=== PATIENT | male | born 1955 | race African-American/Black ===

== ENCOUNTER 2019-03-03 13:46 | Inpatient (IN) | payer BC ==
[2019-03-03 18:19] VITALS: BMI 15.7
--- NOTE | 2019-03-03 21:17 | HP ---
"COWS - Scale Resting Pulse: 1= [place] 81-100 Sweatin= Chills/Flushing Restless Observation: 3= Extraneous Movement Pupil Size: 1= Pupils >than Normal (Pupils = 3 mm) Bone or Joint Aches: 0= None Runny Nose/ Eye Tearin= Nasal Congestion GI Upset > 30mins: 2= Nausea/Diarrhea (No diarhea) Tremor Observation: 2= Slight Tremor Visible Yawning Observation: 0= None Anxiety or Irritability: 1=Feels Anxious/Irritable Goose Flesh Skin: 0=Smooth Skin COWS Score: 12 CIWA Score Nausea/Vomitin Muscle Tremors: 3 Anxiety: 1-Mildly Anxious Agitation: 4-Moderately Restless Paroxysmal Sweats: 3 (Increased facial moisture) Orientation: 0-Oriented Tacttile Disturbances: 0-None Auditory Disturbances: 0-None Visual Disturbances: 0-None Headache: 0-None Present CIWA-Ar Total Score: 14 - Admission Criteria OASAS Guidelines: Admission for Medically Managed Detox: Requires at least one of the followin. CIWA greater than 12 2. Seizures within the past 24 hours 3. Delirium tremens within the past 24 hours 4. Hallucinations within the past 24 hours 5. Acute intervention needed for co occurring medical disorder 6. Acute intervention needed for co occurring psychiatric disorder 7. Severe withdrawal that cannot be handled at a lower level of care (continued vomiting, continued diarrhea, abnormal vital signs) requiring intravenous medication and/or fluids 8. Patient presents the following: CIWA greater than 12 Admission Criteria Met: Admission criteria met Admission ROS [facility] Chief Complaint: I drink alcohol and use opiates. But alcohol is my problem/ Allergies/Adverse Reactions: Allergies Allergy/AdvReac Type Severity Reaction Status Date / Time No Known Allergies Allergy Verified 03/03/19 18:18 History of Present Illness: First admission for this 63 yo who presents seeking detox from alcohol and opiates. UTox: + THC/FEN/MOP/OXY/BUP MARK: 0.0 Alcohol use began at age 16. Currently drinks 1 pint daily x 1 year. Opiate use began at age 57. On Suboxone, but has been only taking pieces of prescribed dose. (Approx 1/4 or less of strip). Self tapering off Suboxone. Relapsed w/heroin,([place]) about 2-3 days ago. Discussed Suboxone dosing and patient wants minimal tx. Will give 2 mg and increase number of hours between doses. Marijuana use began at age 17. Once or twice/month. Nicotine use began at age [age]. Currently smoking 1/2 PPD. Black outs - last 4 days ago. Denies seizures. Overdoses. 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 Denies thoughts of harming self or others. SHx: Owns own place. Retired (On SSD). Denies legal issues Longest length sobriety x 3 years in Patient Name: Manuel Awna Date: 1955 Address: [address] [place] [address] Sex: Male Rx Written Rx Dispensed Drug Quantity Days Supply Prescriber Name 08/28/2018 08/31/2018 suboxone 8 mg-2 mg sl film 30 30 Dorcena-Ayo, Karla 08/06/2018 08/12/2018 suboxone 8 mg-2 mg sl film 30 30 Dorcena-Ayo, Karla 07/09/2018 07/10/2018 suboxone 8 mg-2 mg sl film 30 30 Dorcena-Ayo, Karla 05/07/2018 05/08/2018 suboxone 8 mg-2 mg sl film 30 30 Dorcena-Ayo, Karla 04/10/2018 04/11/2018 suboxone 8 mg-2 mg sl film 30 30 Dorcena-Ayo, Karla 03/11/2018 03/13/2018 suboxone 8 mg-2 mg sl film 30 30 Dorcena-Ayo, Karla Search Terms: Manuel Awan, 1955 Search Date: 03/03/2019 09:12:28 PM States Searched: [place], [place], [place], [place], [place], [place], [place] The Drug Utilization Report below displays the controlled substance prescriptions, if any, that were dispensed in the indicated state(s). The information displayed on this report is compiled from requests submitted to other states' PMPs, and accurately reflects the information as returned by them. Blank chaney indicate data not provided by other state. This report was requested by: Kristina Mauro | Reference #: [id number] Exam Limitations: No Limitations - Ebola screening Have you traveled outside of the country in the last 21 days: No (N) Have you had contact with anyone from an Ebola affected area: No Have you been sick,other than usual withdrawal symptoms: No Do you have a fever: No - Review of Systems Constitutional: Loss of Appetite, Changes in sleep (Difficulty falling and staying.), Unintentional Wgt. Loss (r/t drinking) EENT: reports: Blurred Vision, Nose Congestion, Dental Problems (Missing and chipped teeth. Chews and swallows ok.) Respiratory: reports: No Symptoms reported Cardiac: reports: No Symptoms Reported, See HPI GI: reports: Nausea, Vomiting (Vomited up fluids, this a.m.) : reports: No Symptoms Reported Musculoskeletal: reports: No Symptoms Reported Integumentary: reports: No Symptoms Reported Neuro: reports: Tremors Endocrine: reports: No Symptoms Reported Hematology: reports: No Symptoms Reported Psychiatric: reports: Orientated x3, Anxious Patient History - PPD History Previous Implant?: Yes (Will order CXRay) Documented Results: Positive w/o proof (States hx: PPD + and took medications for 1 year in ) Implanted On Prior [facility] Admission?: No PPD to be Administered?: No - Smoking Cessation Smoking history: Current every day smoker Aproximately how many cigarettes per day: 10 Hx Chewing Tobacco Use: No Initiated information on smoking cessation: Yes 'Breaking Loose' booklet given: 03/03/19 - Substance & Tx. History Hx Alcohol Use: Yes Hx Substance Use: Yes Substance Use Type: Alcohol, Heroin (States takes suboxone and has been weaning self off. ), Marijuana Hx Substance Use Treatment: Yes (detox, rehab, on Suboxone) - Substances abused Alcohol Substance route: Oral Frequency: Daily Amount used: 1 pint of Vodka Age of first use: 16 Date of last use: 03/03/19 Heroin Other (specify): sniff Frequency: Daily Amount used: 2 -3 bags Age of first use: 57 Date of last use: 03/03/19 Admission Physical Exam BHS - Vital Signs Vital Signs: Vital Signs - 24 hr 03/03/19 03/03/19 18:07 18:28 Temperature 97.7 F 97.7 F Pulse Rate 92 H 92 H Respiratory 20 20 Rate Blood Pressure 183/95 H 183/95 H - Physical General Appearance: Yes: Mild Distress, Thin, Tremorous (Mild tremors of hands) , Sweating (Increased facial moisture), Anxious HEENTM: Yes: EOMI (Jerking movement of eyes upon lateral gaze), Hearing grossly Normal, Normocephalic, SARA (Pupils = 3 mm), Pharynx Normal Respiratory: Yes: Lungs Clear (Pulse ox = 94 %), Normal Breath Sounds, No Respiratory Distress Neck: Yes: No masses,lesions,Nodules, Supple Breast: Yes: Breast Exam Deferred Cardiology: Yes: Regular Rhythm, Regular Rate, S1, S2, Murmur (Murmur heard) Abdominal: Yes: Non Tender, Flat, Soft, Increased Bowel Sounds Genitourinary: Yes: Within Normal Limits Back: Yes: Normal Inspection Musculoskeletal: Yes: full range of Motion, Gait Steady Extremities: Yes: Normal Capillary Refill, Normal Range of Motion, Tremors Neurological: Yes: chro II-XII NML intact (Jerking movement of eyes upon lateral gaze), Fully Oriented, Alert, Motor Strength 5/5 Integumentary: Yes: Normal Color, Warm, Diaphoresis (Increased facial moisture) Lymphatic: Yes: Within Normal Limits - Diagnostic (1) Alcohol dependence with uncomplicated withdrawal Current Visit: Yes Status: Acute (2) Opioid dependence with withdrawal Current Visit: Yes Status: Chronic Comment: Has been weaning self off of suboxone and relapsed (3) Nicotine dependence, uncomplicated Current Visit: Yes Status: Chronic Qualifiers: Nicotine product type: cigarettes Qualified Code(s): F17.210 - Nicotine dependence, cigarettes, uncomplicated (4) Nystagmus Current Visit: Yes Status: Acute Comment: Unsure of chronicity (5) History of positive PPD Current Visit: Yes Status: Chronic (6) Underweight Current Visit: Yes Status: Chronic (7) COPD (chronic obstructive pulmonary disease) Current Visit: Yes Status: Chronic Qualifiers: COPD type: unspecified COPD Qualified Code(s): J44.9 - Chronic obstructive pulmonary disease, unspecified (8) History of lung disease Current Visit: Yes Status: Suspected (9) Elevated blood pressure reading in office without diagnosis of hypertension Current Visit: Yes Status: Acute Cleared for Admission S - Detox or Rehab [facility] Level of Care: Medically Managed Detox Regimen/Protocol: Librium Claeared for Rehab Admission: No Breathalyzer - Breathalyzer Breathalyzer: 0 Urine Drug Screen - Test Device Lot number: [id number] Expiration date: 11/22/20 - Control Is test valid?: Yes - Results Drug screen NEGATIVE: No Urine drug screen results: THC-Marijuana, FEN-Fentanyl, MOP-Opiates, OXY- Oxycodone, BUP-Suboxone Inpatient Rehab Admission - Rehab Decision to Admit Inpatient rehab admission?: No"
[2019-03-03] MEDS ORDERED: BISMUTH SUBSALICYLATE 524 MG/30 ML UD PO PRN (22:02)
[2019-03-03] MEDS ORDERED: NICOTINE POLACRILEX 2 MG GUM BUC PRN (22:02)
[2019-03-03] MEDS ORDERED: chlordiazePOXIDE HCL 10 MG CAPSULE PO PRN (22:02)
[2019-03-03] MEDS ORDERED: METHOCARBAMOL 500 MG TABLET PO PRN (22:02)
[2019-03-03] MEDS ORDERED: ACETAMINOPHEN 325 MG TABLET (FP) PO PRN ×2 (22:02)
[2019-03-03] MEDS ORDERED: MAGNESIUM HYDROX 2400MG/30ML ORAL SUSPENSION 30 ML CUP PO PRN (22:02)
[2019-03-03] MEDS ORDERED: MELATONIN 5 MG TABLETS PO PRN (22:02)
[2019-03-03] MEDS ORDERED: MAG HYDROX/AL HYDROX/SIMETH 30 ML UNIT-DOSE CUP PO PRN (22:02)
[2019-03-03] MEDS ORDERED: IBUPROFEN 400 MG TABLET (FP) PO PRN (22:02)
[2019-03-03] MEDS ORDERED: MENTHOL/PHENOL 1 EACH UD MM PRN (22:02)
[2019-03-03] MEDS ORDERED: MAGNESIUM CITRATE 300 ML BOTTLE PO PRN (22:02)
[2019-03-03] MEDS ORDERED: cloNIDine HCL 0.1 MG TABLET PO ONE (22:07)
[2019-03-04] MEDS: chlordiazePOXIDE HCL 25 MG CAPSULE PO SCH ×3 (04:07→22:14)
[2019-03-04] MEDS ORDERED: BUPRENORPHINE/NALOXONE 2 MG/0.5 MG FILM PACKET SL ONE (10:00)
[2019-03-04 10:08] LABS: HEMATOCRIT 39.6 % (35.4-49); HEMOGLOBIN 13.5 GM/dL (11.7-16.9); MCH 34.9 pg (25.7-33.7); MEAN CELL VOLUME 102.5 fl (80-96); MEAN PLT VOLUME 8.9 fl (7.5-11.1); PLATELET COUNT 240 K/MM3 (134-434); RBC 3.87 M/mm3 (4.00-5.60); WHITE BLOOD COUNT 4.5 K/mm3 (4.0-10.0)
[2019-03-04 10:15] LABS: ALBUMIN 3.3 g/dl (3.4-5.0); BILIRUBIN,TOTAL 0.9 mg/dL (0.2-1); BLOOD UREA NITROGEN 11.2 mg/dL (7-18); CALCIUM 9.7 mg/dL (8.5-10.1); CREATININE 0.9 mg/dL (0.55-1.3); TOT PROT 8.4 g/dl (6.4-8.2)
[2019-03-04] MEDS: PRENATAL VITAMINS W/ FOLIC ACID TABLET (FP) PO SCH (10:33)
[2019-03-04] MEDS: NICOTINE 14 MG/24 HOURS TOPICAL PATCH TD SCH (10:34)
--- NOTE | 2019-03-04 11:23 | EKG ---
Test Reason : Blood Pressure : / mmHG Vent. Rate : 065 BPM Atrial Rate : 065 BPM P-R Int : 102 ms QRS Dur : 094 ms QT Int : 402 ms P-R-T Axes : 082 076 067 degrees QTc Int : 418 ms POOR DATA QUALITY, INTERPRETATION MAY BE ADVERSELY AFFECTED SINUS RHYTHM WITH SHORT ME NONSPECIFIC ST ABNORMALITY ABNORMAL ECG NO PREVIOUS ECGS AVAILABLE Confirmed by Marco Antonio Bradford MD ([id number]) on 03/04/2019 11:23:15 AM Referred By: Confirmed By:Marco Antonio Bradford MD
--- NOTE | 2019-03-04 12:41 | PN ---
[facility] CIWA - CIWA Score Nausea/Vomitin-Mild Nausea/No Vomiting Muscle Tremors: 2 Anxiety: 3 Agitation: 2 Paroxysmal Sweats: 1-Minimal Palms Moist Orientation: 0-Oriented Tacttile Disturbances: 1-Very Mild Itch/Numbness Auditory Disturbances: 0-None Visual Disturbances: 0-None Headache: 1-Very Mild CIWA-Ar Total Score: 11 S COWS - Scale Resting Pulse: 1= [place] 81-100 Sweatin= Chills/Flushing Restless Observation: 0= Sits Still Pupil Size: 0= Normal to Room Light Bone or Joint Aches: 1= Mild Discomfort Runny Nose/ Eye Tearin= Nasal Congestion GI Upset > 30mins: 2= Nausea/Diarrhea (no diarrhea) Tremor Observation of Outstretched Hands: 2= Slight Tremor Visible Yawning Observation: 1= 1-2x During Session Anxiety or Irritability: 2=Irritable/Anxious Goose Flesh Skin: 0=Smooth Skin COWS Score: 11 [facility] Progress Note (SOAP) Subjective: 63 years old male 1st patient [facility] admission was admitted on 03/03/19 for alcohol and opiate withdrawal sx management doing well with librium and suboxone detox regimen sitting on the edge of the bed eating breakfast alert speech clearly steady gait from bed to bathroom denies dizziness Objective: 03/04/19 12:43 Vital Signs Temperature 97.6 F 03/04/19 09:11 Pulse Rate 81 03/04/19 09:11 Respiratory Rate 18 03/04/19 09:11 Blood Pressure 117/64 03/04/19 09:11 O2 Sat by Pulse Oximetry (%) Laboratory Last Values WBC 4.5 K/mm3 (4.0-10.0) 03/04/19 08:00 RBC 3.87 M/mm3 (4.00-5.60) L 03/04/19 08:00 Hgb 13.5 GM/dL (11.7-16.9) 03/04/19 08:00 Hct 39.6 % (35.4-49) 03/04/19 08:00 MCV 102.5 fl (80-96) H 03/04/19 08:00 MCH 34.9 pg (25.7-33.7) H 03/04/19 08:00 MCHC 34.0 g/dl (32.0-35.9) 03/04/19 08:00 RDW 16.0 % (11.9-15.9) H 03/04/19 08:00 Plt Count 240 K/MM3 (134-434) 03/04/19 08:00 MPV 8.9 fl (7.5-11.1) 03/04/19 08:00 Sodium 138 mmol/L (136-145) 03/04/19 08:00 Potassium 4.0 mmol/L (3.5-5.1) 03/04/19 08:00 Chloride 98 mmol/L (98-107) 03/04/19 08:00 Carbon Dioxide 35 mmol/L (21-32) H 03/04/19 08:00 Anion Gap 5 MMOL/L (8-16) L 03/04/19 08:00 BUN 11.2 mg/dL (7-18) 03/04/19 08:00 Creatinine 0.9 mg/dL (0.55-1.3) 03/04/19 08:00 Est GFR (CKD-EPI)AfAm 104.24 03/04/19 08:00 Est GFR (CKD-EPI)NonAf 89.94 03/04/19 08:00 Random Glucose 87 mg/dL (74-106) 03/04/19 08:00 Calcium 9.7 mg/dL (8.5-10.1) 03/04/19 08:00 Total Bilirubin 0.9 mg/dL (0.2-1) 03/04/19 08:00 AST 55 U/L (15-37) H 03/04/19 08:00 ALT 49 U/L (13-61) 03/04/19 08:00 Alkaline Phosphatase 134 U/L (45-117) H 03/04/19 08:00 Total Protein 8.4 g/dl (6.4-8.2) H 03/04/19 08:00 Albumin 3.3 g/dl (3.4-5.0) L 03/04/19 08:00 RPR Titer Nonreactive (NONREACTIVE) 03/04/19 08:00 lab noted Assessment: 03/04/19 12:44 alcohol and opiate withdrawal sx Plan: continue librium and suboxone detox regimen
[2019-03-04] MEDS: THIAMINE HCL 100 MG TABLET (FP) PO SCH (22:14)
[2019-03-05] MEDS ORDERED: chlordiazePOXIDE HCL 10 MG CAPSULE PO PRN
[2019-03-05] MEDS: chlordiazePOXIDE 5 MG CAPSULE PO SCH ×3 (05:19→22:06)
[2019-03-05] MEDS: PRENATAL VITAMINS W/ FOLIC ACID TABLET (FP) PO SCH (10:09)
[2019-03-05] MEDS: NICOTINE 14 MG/24 HOURS TOPICAL PATCH TD SCH (10:10)
--- NOTE | 2019-03-05 14:37 | PN ---
[facility] CIWA - CIWA Score Nausea/Vomitin-No Nausea/No Vomiting Muscle Tremors: 2 Anxiety: 2 Agitation: 2 Paroxysmal Sweats: No Perspiration Orientation: 0-Oriented Tacttile Disturbances: 1-Very Mild Itch/Numbness Auditory Disturbances: 0-None Visual Disturbances: 0-None Headache: 0-None Present CIWA-Ar Total Score: 7 S COWS - Scale Resting Pulse: 1= [place] 81-100 Sweatin= Chills/Flushing Restless Observation: 0= Sits Still Pupil Size: 0= Normal to Room Light Bone or Joint Aches: 1= Mild Discomfort Runny Nose/ Eye Tearin= None GI Upset > 30mins: 1= Stomach Cramp Tremor Observation of Outstretched Hands: 1= Tremor [place], Not Seen Yawning Observation: 1= 1-2x During Session Anxiety or Irritability: 1=Feels Anxious/Irritable Goose Flesh Skin: 0=Smooth Skin COWS Score: 7 [facility] Progress Note (SOAP) Subjective: doing well with libirum and suboxone detox regimen less tremor tolerate food and fluid well feeling sad multiple relapse denies suicidal ideation denies history of suicidal attempt Objective: 03/05/19 14:51 Vital Signs Temperature 97.8 F 03/05/19 13:41 Pulse Rate 82 03/05/19 13:41 Respiratory Rate 18 03/05/19 13:41 Blood Pressure 146/89 03/05/19 13:41 O2 Sat by Pulse Oximetry (%) Laboratory Last Values WBC 4.5 K/mm3 (4.0-10.0) 03/04/19 08:00 RBC 3.87 M/mm3 (4.00-5.60) L 03/04/19 08:00 Hgb 13.5 GM/dL (11.7-16.9) 03/04/19 08:00 Hct 39.6 % (35.4-49) 03/04/19 08:00 MCV 102.5 fl (80-96) H 03/04/19 08:00 MCH 34.9 pg (25.7-33.7) H 03/04/19 08:00 MCHC 34.0 g/dl (32.0-35.9) 03/04/19 08:00 RDW 16.0 % (11.9-15.9) H 03/04/19 08:00 Plt Count 240 K/MM3 (134-434) 03/04/19 08:00 MPV 8.9 fl (7.5-11.1) 03/04/19 08:00 Sodium 138 mmol/L (136-145) 03/04/19 08:00 Potassium 4.0 mmol/L (3.5-5.1) 03/04/19 08:00 Chloride 98 mmol/L (98-107) 03/04/19 08:00 Carbon Dioxide 35 mmol/L (21-32) H 03/04/19 08:00 Anion Gap 5 MMOL/L (8-16) L 03/04/19 08:00 BUN 11.2 mg/dL (7-18) 03/04/19 08:00 Creatinine 0.9 mg/dL (0.55-1.3) 03/04/19 08:00 Est GFR (CKD-EPI)AfAm 104.24 03/04/19 08:00 Est GFR (CKD-EPI)NonAf 89.94 03/04/19 08:00 Random Glucose 87 mg/dL (74-106) 03/04/19 08:00 Calcium 9.7 mg/dL (8.5-10.1) 03/04/19 08:00 Total Bilirubin 0.9 mg/dL (0.2-1) 03/04/19 08:00 AST 55 U/L (15-37) H 03/04/19 08:00 ALT 49 U/L (13-61) 03/04/19 08:00 Alkaline Phosphatase 134 U/L (45-117) H 03/04/19 08:00 Total Protein 8.4 g/dl (6.4-8.2) H 03/04/19 08:00 Albumin 3.3 g/dl (3.4-5.0) L 03/04/19 08:00 RPR Titer Nonreactive (NONREACTIVE) 03/04/19 08:00 lab noted Assessment: 03/05/19 14:52 alcohol and opiate withdrawal sx Plan: continue libirum and suboxone detox regimen
[2019-03-05] MEDS ORDERED: BUPRENORPHINE/NALOXONE 2 MG/0.5 MG FILM PACKET SL ONE (22:00)
[2019-03-05] MEDS: THIAMINE HCL 100 MG TABLET (FP) PO SCH (22:06)
[2019-03-06] MEDS: chlordiazePOXIDE HCL 10 MG CAPSULE PO SCH ×3 (05:41→22:18)
[2019-03-06] MEDS: PRENATAL VITAMINS W/ FOLIC ACID TABLET (FP) PO SCH (09:59)
[2019-03-06] MEDS: NICOTINE 14 MG/24 HOURS TOPICAL PATCH TD SCH (09:59)
[2019-03-06 12:19] LABS: URINE APPEARANCE CLEAR; URINE BILIRUBIN NEGATIVE (NEGATIVE); URINE COLOR YELLOW; URINE GLUCOSE (UA) NEGATIVE (NEGATIVE); URINE KETONE NEGATIVE (NEGATIVE); URINE LEUK ESTERASE NEGATIVE (NEGATIVE); URINE NITRITE NEGATIVE (NEGATIVE); URINE PROTEIN NEGATIVE (NEGATIVE)
--- NOTE | 2019-03-06 14:17 | PN ---
S CIWA - CIWA Score Nausea/Vomitin-No Nausea/No Vomiting Muscle Tremors: 2 Anxiety: 2 Agitation: 1-Slight > Activity Paroxysmal Sweats: No Perspiration Orientation: 0-Oriented Tacttile Disturbances: 0-None Auditory Disturbances: 0-None Visual Disturbances: 0-None Headache: 0-None Present CIWA-Ar Total Score: 5 [facility] COWS - Scale Resting Pulse: 0= [place] 80 or Below Sweatin= Chills/Flushing Restless Observation: 0= Sits Still Pupil Size: 0= Normal to Room Light Bone or Joint Aches: 1= Mild Discomfort Runny Nose/ Eye Tearin= None GI Upset > 30mins: 1= Stomach Cramp Tremor Observation of Outstretched Hands: 1= Tremor [place], Not Seen Yawning Observation: 0= None Anxiety or Irritability: 1=Feels Anxious/Irritable Goose Flesh Skin: 0=Smooth Skin COWS Score: 5 [facility] Progress Note (SOAP) Subjective: doing well with librium and suboxone detox regimen sleep better at night tolerate food and fluid well social with peer in day room discuss aftercare with staff prefers [facility] Objective: 03/06/19 14:19 Vital Signs Temperature 98.8 F 03/06/19 13:13 Pulse Rate 75 03/06/19 13:13 Respiratory Rate 18 03/06/19 13:13 Blood Pressure 112/75 03/06/19 13:13 O2 Sat by Pulse Oximetry (%) Laboratory Last Values WBC 4.5 K/mm3 (4.0-10.0) 03/04/19 08:00 RBC 3.87 M/mm3 (4.00-5.60) L 03/04/19 08:00 Hgb 13.5 GM/dL (11.7-16.9) 03/04/19 08:00 Hct 39.6 % (35.4-49) 03/04/19 08:00 MCV 102.5 fl (80-96) H 03/04/19 08:00 MCH 34.9 pg (25.7-33.7) H 03/04/19 08:00 MCHC 34.0 g/dl (32.0-35.9) 03/04/19 08:00 RDW 16.0 % (11.9-15.9) H 03/04/19 08:00 Plt Count 240 K/MM3 (134-434) 03/04/19 08:00 MPV 8.9 fl (7.5-11.1) 03/04/19 08:00 Sodium 138 mmol/L (136-145) 03/04/19 08:00 Potassium 4.0 mmol/L (3.5-5.1) 03/04/19 08:00 Chloride 98 mmol/L (98-107) 03/04/19 08:00 Carbon Dioxide 35 mmol/L (21-32) H 03/04/19 08:00 Anion Gap 5 MMOL/L (8-16) L 03/04/19 08:00 BUN 11.2 mg/dL (7-18) 03/04/19 08:00 Creatinine 0.9 mg/dL (0.55-1.3) 03/04/19 08:00 Est GFR (CKD-EPI)AfAm 104.24 03/04/19 08:00 Est GFR (CKD-EPI)NonAf 89.94 03/04/19 08:00 Random Glucose 87 mg/dL (74-106) 03/04/19 08:00 Calcium 9.7 mg/dL (8.5-10.1) 03/04/19 08:00 Total Bilirubin 0.9 mg/dL (0.2-1) 03/04/19 08:00 AST 55 U/L (15-37) H 03/04/19 08:00 ALT 49 U/L (13-61) 03/04/19 08:00 Alkaline Phosphatase 134 U/L (45-117) H 03/04/19 08:00 Total Protein 8.4 g/dl (6.4-8.2) H 03/04/19 08:00 Albumin 3.3 g/dl (3.4-5.0) L 03/04/19 08:00 Urine Color Yellow 03/06/19 08:30 Urine Appearance Clear 03/06/19 08:30 Urine pH 8.0 (5.0-8.0) 03/06/19 08:30 Ur Specific [place] 1.025 (1.010-1.035) 03/06/19 08:30 Urine Protein Negative (NEGATIVE) 03/06/19 08:30 Urine Glucose (UA) Negative (NEGATIVE) 03/06/19 08:30 Urine Ketones Negative (NEGATIVE) 03/06/19 08:30 Urine Blood Negative (NEGATIVE) 03/06/19 08:30 Urine Nitrite Negative (NEGATIVE) 03/06/19 08:30 Urine Bilirubin Negative (NEGATIVE) 03/06/19 08:30 Urine Urobilinogen 1.0 mg/dL (0.2-1.0) 03/06/19 08:30 Ur Leukocyte Esterase Negative (NEGATIVE) 03/06/19 08:30 RPR Titer Nonreactive (NONREACTIVE) 03/04/19 08:00 lab noted Assessment: 03/06/19 14:19 alcohol and opiate withdrawal sx Plan: continue librium and suboxone detox regimen
[2019-03-06] MEDS: THIAMINE HCL 100 MG TABLET (FP) PO SCH (22:18)
[2019-03-07] MEDS ORDERED: chlordiazePOXIDE HCL 10 MG CAPSULE PO ONE (05:00)
[2019-03-07 06:32] VITALS: BP 129/76; PULSE 53; TEMP 97.8
[2019-03-07] MEDS ORDERED: BUPRENORPHINE/NALOXONE 2 MG/0.5 MG FILM PACKET SL ONE (10:00)
--- NOTE | 2019-03-07 19:17 | DS ---
[facility] Detox Discharge Summary Admission Date: 03/03/19 Discharge Date: 03/07/19 - History Present History: Alcohol Dependence, Opioid Dependence Additional Comments: PATIENT RETURNING HOME, WILL PURSUE LOCAL 12-STEP / NA / AA OUTPATIENT SUPPORT GROUP ON HIS OWN. PATIENT DECLINED OFFER OF MEDICATION PRESCRIPTION FOR HOME MEDICATION (SYMBICORT) AT TIME OF DISCHARGE FROM DETOX, NOTING THAT HE CURRENTLY HAS ADEQUATE SUPPLIES OF ALL PRESCRIBED HOME MEDICATIONS AT HOME. PATIENT WAS DISCHARGED FROM DETOX UNIT IN STABLE MEDICAL CONDITION. Pertinent Past History: Nicotine Dependence, Nystagmus, History Of positive PPD, History Of Asthma, History Of HTN / Elevated Blood Pressure Reading, History Of Lung Disorder ( Lesion present on Lungs), Elevated AST Level, Elevated Alkaline Phosphatase Level. - Physical Exam Results Vital Signs: Vital Signs Temperature 97.8 F 03/07/19 06:31 Pulse Rate 53 L 03/07/19 06:31 Respiratory Rate 18 03/07/19 06:31 Blood Pressure 129/76 03/07/19 06:31 O2 Sat by Pulse Oximetry (%) Pertinent Admission Physical Exam Findings: WITHDRAWAL SYMPTOMS. Laboratory Tests 03/04/19 03/04/19 03/04/19 08:00 08:00 08:00 WBC 4.5 RBC 3.87 L Hgb 13.5 Hct 39.6 MCV 102.5 H MCH 34.9 H MCHC 34.0 RDW 16.0 H Plt Count 240 MPV 8.9 Sodium 138 Potassium 4.0 Chloride 98 Carbon Dioxide 35 H Anion Gap 5 L BUN 11.2 Creatinine 0.9 Est GFR (CKD-EPI)AfAm 104.24 Est GFR (CKD-EPI)NonAf 89.94 Random Glucose 87 Calcium 9.7 Total Bilirubin 0.9 AST 55 H ALT 49 Alkaline Phosphatase 134 H Total Protein 8.4 H Albumin 3.3 L Urine Color Urine Appearance Urine pH Ur Specific [place] Urine Protein Urine Glucose (UA) Urine Ketones Urine Blood Urine Nitrite Urine Bilirubin Urine Urobilinogen Ur Leukocyte Esterase RPR Titer Nonreactive 03/06/19 08:30 WBC RBC Hgb Hct MCV MCH MCHC RDW Plt Count MPV Sodium Potassium Chloride Carbon Dioxide Anion Gap BUN Creatinine Est GFR (CKD-EPI)AfAm Est GFR (CKD-EPI)NonAf Random Glucose Calcium Total Bilirubin AST ALT Alkaline Phosphatase Total Protein Albumin Urine Color Yellow Urine Appearance Clear Urine pH 8.0 Ur Specific [place] 1.025 Urine Protein Negative Urine Glucose (UA) Negative Urine Ketones Negative Urine Blood Negative Urine Nitrite Negative Urine Bilirubin Negative Urine Urobilinogen 1.0 Ur Leukocyte Esterase Negative RPR Titer LABS NOTED. - Treatment Hospital Course: Detox Protocol Followed, Detoxed Safely, Responded well, Discharged Condition Good Patient has Accepted a Rehab Referral to: PT. WILL ATTEND LOCAL 12-STEP/ NA / AA OUTPATIENT SUPPORT GROUP PROGRAM. - Medication Discharge Medications: Ambulatory Orders Budesonide/Formeterol Fumarate [SYMBICORT 160/4.5mcg -] 1 inh IH BID #1 inhaler 03/06/19 - Diagnosis (1) Alcohol dependence with uncomplicated withdrawal Status: Acute (2) Elevated blood pressure reading in office without diagnosis of hypertension Status: Acute (3) Nystagmus Status: Acute (4) COPD (chronic obstructive pulmonary disease) Status: Chronic Qualifiers: COPD type: unspecified COPD Qualified Code(s): J44.9 - Chronic obstructive pulmonary disease, unspecified (5) History of positive PPD Status: Chronic (6) Nicotine dependence, uncomplicated Status: Chronic Qualifiers: Nicotine product type: cigarettes Qualified Code(s): F17.210 - Nicotine dependence, cigarettes, uncomplicated (7) Opioid dependence with withdrawal Status: Chronic (8) Underweight Status: Chronic (9) History of lung disease Status: Suspected - AMA Did Patient Leave Against Medical Advice: No [facility] CIWA - CIWA Score Nausea/Vomitin-No Nausea/No Vomiting Muscle Tremors: None Anxiety: 2 Agitation: 0-Normal Activity Paroxysmal Sweats: No Perspiration Orientation: 0-Oriented Tacttile Disturbances: 0-None Auditory Disturbances: 0-None Visual Disturbances: 0-None Headache: 0-None Present CIWA-Ar Total Score: 2 [facility] COWS - Scale Resting Pulse: 0= [place] 80 or Below Sweatin= No chills or Flushing Restless Observation: 1= Difficult to Sit Still Pupil Size: 0= Normal to Room Light Bone or Joint Aches: 0= None Runny Nose/ Eye Tearin= None GI Upset > 30mins: 0= None Tremor Observation of Outstretched Hands: 0= None Yawning Observation: 1= 1-2x During Session Anxiety or Irritability: 2=Irritable/Anxious Goose Flesh Skin: 0=Smooth Skin COWS Score: 4
== END 2019-03-07 11:04 | disposition home or self-care (01) | DRG 897 ==
LOC: YASAS 13:46 → Y3N 22:31
PROVIDERS: ADMIT Surgery; ATTEND Surgery
PROC: HZ2ZZZZ Detoxification Services for Substance Abuse Treatment (ICD-10-PCS; principal; 2019-03-03)
DX: F10.230 Alcohol dependence with withdrawal, uncomplicated (principal); Z68.1 Body mass index [BMI] 19.9 or less, adult; F11.23 Opioid dependence with withdrawal; F17.210 Nicotine dependence, cigarettes, uncomplicated; H55.00 Unspecified nystagmus; J44.9 Chronic obstructive pulmonary disease, unspecified; R63.6 Underweight; R03.0 Elevated blood-pressure reading, without diagnosis of hypertension; R76.11 Nonspecific reaction to tuberculin skin test without active tuberculosis; Z87.09 Personal history of other diseases of the respiratory system
CPT/HCPCS: 36415; 71046-TC-FY; 80053; 81003; 85027; 86593; 93005; 93010; J0735

== ENCOUNTER 2020-06-16 12:28 | Inpatient (IN) | payer BC ==
[2020-06-16 14:22] VITALS: BMI 17.9
[2020-06-16] MEDS ORDERED: MAG HYDROX/AL HYDROX/SIMETH 30 ML UNIT-DOSE CUP PO PRN (14:59)
[2020-06-16] MEDS ORDERED: METHOCARBAMOL 500 MG TABLET PO PRN (14:59)
[2020-06-16] MEDS ORDERED: MAGNESIUM HYDROX 2400MG/30ML ORAL SUSPENSION 30 ML CUP PO PRN (14:59)
[2020-06-16] MEDS ORDERED: ONDANSETRON *ODT* 4 MG TABLET SL PRN (14:59)
[2020-06-16] MEDS ORDERED: MENTHOL/PHENOL 1 EACH UD MM PRN (14:59)
[2020-06-16] MEDS ORDERED: MAGNESIUM CITRATE 300 ML BOTTLE PO PRN (14:59)
[2020-06-16] MEDS ORDERED: ACETAMINOPHEN 325 MG TABLET (FP) PO PRN ×2 (14:59)
[2020-06-16] MEDS ORDERED: NICOTINE POLACRILEX 2 MG GUM BUC PRN (14:59)
[2020-06-16] MEDS ORDERED: BISMUTH SUBSALICYLATE 524 MG/30 ML UD PO PRN (14:59)
[2020-06-16] MEDS ORDERED: chlordiazePOXIDE HCL 25 MG CAPSULE PO PRN (14:59)
[2020-06-16] MEDS ORDERED: IBUPROFEN 400 MG TABLET (FP) PO PRN (14:59)
[2020-06-16] MEDS ORDERED: METHADONE HCL 10 MG TABLET (FOR DETOX USE ONLY) PO ONE (15:59)
[2020-06-16] MEDS ORDERED: cloNIDine HCL 0.1 MG TABLET PO PRN (15:59)
[2020-06-16] MEDS ORDERED: amLODIPine BESYLATE 5 MG TABLET (FP) ONE (16:07)
[2020-06-16] MEDS: amLODIPine BESYLATE 10 MG TABLET (FP) PO SCH (16:12)
[2020-06-16 17:02] LABS: HEMATOCRIT 39.8 % (35.4-49); HEMOGLOBIN 13.5 GM/dL (11.7-16.9); MCH 34.1 pg (25.7-33.7); MCHC 33.9 g/dl (32.0-35.9); MEAN CELL VOLUME 100.6 fl (80-96); MEAN PLT VOLUME 8.5 fl (7.5-11.1); PLATELET COUNT 298 K/MM3 (134-434); RBC 3.96 M/mm3 (4.00-5.60); RDW 15.1 % (11.9-15.9); WHITE BLOOD COUNT 5.9 K/mm3 (4.0-10.0)
[2020-06-16 17:07] LABS: POTASSIUM 3.4 mmol/L (3.5-5.1)
[2020-06-16 17:09] LABS: ALBUMIN 3.4 g/dl (3.4-5.0); BLOOD UREA NITROGEN 10.8 mg/dL (7-18); CALCIUM 9.1 mg/dL (8.5-10.1)
[2020-06-16 17:14] LABS: BILIRUBIN,TOTAL 0.3 mg/dL (0.2-1); TOT PROT 8.4 g/dl (6.4-8.2)
[2020-06-16] MEDS: chlordiazePOXIDE HCL 25 MG CAPSULE PO SCH ×2 (18:04→22:22)
[2020-06-16] MEDS: hydrOXYzine PAMOATE 25 MG CAPSULE (FP) PO SCH ×2 (18:04→22:22)
[2020-06-16] MEDS: MELATONIN 5 MG TABLETS PO SCH (22:22)
[2020-06-16] MEDS: BUDESONIDE/FORMETEROL FUMARATE 160/4.5 mcg INHALER IH SCH (22:22)
[2020-06-16] MEDS: THIAMINE HCL 100 MG TABLET (FP) PO SCH (22:23)
[2020-06-17] MEDS: hydrOXYzine PAMOATE 25 MG CAPSULE (FP) PO SCH ×5 (07:23→22:46)
[2020-06-17] MEDS: chlordiazePOXIDE HCL 25 MG CAPSULE PO SCH ×4 (07:23→22:41)
[2020-06-17] MEDS ORDERED: METHADONE (DETOX) 20 MG, METHADONE (DETOX) 5 MG PO ONE (10:00)
[2020-06-17] MEDS: amLODIPine BESYLATE 10 MG TABLET (FP) PO SCH (11:46)
[2020-06-17] MEDS: BUDESONIDE/FORMETEROL FUMARATE 160/4.5 mcg INHALER IH SCH ×2 (11:47→22:46)
[2020-06-17] MEDS: NICOTINE 14 MG/24 HOURS TOPICAL PATCH TD SCH (11:49)
[2020-06-17] MEDS: PRENATAL VITAMINS W/ FOLIC ACID TABLET (FP) PO SCH (11:49)
[2020-06-17] MEDS: POTASSIUM CHLORIDE TABS 20 MEQ TABLET.ER (FP) PO SCH ×2 (11:55→22:40)
[2020-06-17] MEDS: THIAMINE HCL 100 MG TABLET (FP) PO SCH (22:40)
[2020-06-17] MEDS: MELATONIN 5 MG TABLETS PO SCH (22:46)
[2020-06-18] MEDS: hydrOXYzine PAMOATE 25 MG CAPSULE (FP) PO SCH ×4 (06:13→17:09)
[2020-06-18] MEDS: chlordiazePOXIDE HCL 25 MG CAPSULE PO SCH ×4 (06:13→22:42)
[2020-06-18] MEDS ORDERED: METHADONE HCL 10 MG TABLET (FOR DETOX USE ONLY) PO ONE (10:00)
[2020-06-18] MEDS: POTASSIUM CHLORIDE TABS 20 MEQ TABLET.ER (FP) PO SCH (10:39)
[2020-06-18] MEDS: amLODIPine BESYLATE 10 MG TABLET (FP) PO SCH (10:39)
[2020-06-18] MEDS: BUDESONIDE/FORMETEROL FUMARATE 160/4.5 mcg INHALER IH SCH ×2 (10:40→22:40)
[2020-06-18] MEDS: NICOTINE 14 MG/24 HOURS TOPICAL PATCH TD SCH (10:40)
[2020-06-18] MEDS: PRENATAL VITAMINS W/ FOLIC ACID TABLET (FP) PO SCH (10:46)
[2020-06-18 11:13] LABS: POTASSIUM 3.6 mmol/L (3.5-5.1)
[2020-06-18 11:17] LABS: CALCIUM 8.9 mg/dL (8.5-10.1)
[2020-06-18 11:18] LABS: ALBUMIN 2.9 g/dl (3.4-5.0); BLOOD UREA NITROGEN 7.8 mg/dL (7-18)
[2020-06-18 11:21] LABS: CREATININE 0.8 mg/dL (0.55-1.3)
[2020-06-18 11:22] LABS: BILIRUBIN,TOTAL 0.6 mg/dL (0.2-1); TOT PROT 7.9 g/dl (6.4-8.2)
[2020-06-18 11:26] LABS: BASO % 0.4 % (0-2.0); EOS % 1.4 % (0-4.5); HEMATOCRIT 43.2 % (35.4-49); HEMOGLOBIN 14.6 GM/dL (11.7-16.9); LYMPH % 28.5 % (8-40); MCH 34.5 pg (25.7-33.7); MCHC 33.9 g/dl (32.0-35.9); MEAN CELL VOLUME 101.8 fl (80-96); MEAN PLT VOLUME 9.1 fl (7.5-11.1); MONO % 14.9 % (3.8-10.2); NEUT % 54.8 % (42.8-82.8); PLATELET COUNT 271 K/MM3 (134-434); RBC 4.24 M/mm3 (4.00-5.60); RDW 15.5 % (11.9-15.9); WHITE BLOOD COUNT 3.6 K/mm3 (4.0-10.0)
[2020-06-18] MEDS ORDERED: MELATONIN 5 MG TABLETS PO PRN (21:19)
[2020-06-18] MEDS: THIAMINE HCL 100 MG TABLET (FP) PO SCH (22:40)
[2020-06-19] MEDS ORDERED: chlordiazePOXIDE HCL 10 MG CAPSULE PO PRN
[2020-06-19] MEDS: chlordiazePOXIDE HCL 10 MG CAPSULE PO SCH ×4 (06:13→23:37)
[2020-06-19] MEDS ORDERED: METHADONE HCL 10 MG TABLET (FOR DETOX USE ONLY) ONE (09:20)
[2020-06-19] MEDS ORDERED: METHADONE HCL 5 MG TABLET (FOR DETOX USE ONLY) ONE (09:20)
[2020-06-19] MEDS ORDERED: METHADONE (DETOX) 10 MG, METHADONE (DETOX) 5 MG PO ONE (10:00)
[2020-06-19] MEDS ORDERED: METHADONE HCL 10 MG TABLET (FOR DETOX USE ONLY) PO ONE (11:46)
[2020-06-19] MEDS ORDERED: ALBUTEROL SO4 2.5/IPRATROPIUM 0.5 INH SOL 3 ML VIAL.NEB. NEB PRN (11:46)
[2020-06-19] MEDS: NICOTINE 14 MG/24 HOURS TOPICAL PATCH TD SCH (12:34)
[2020-06-19] MEDS: PRENATAL VITAMINS W/ FOLIC ACID TABLET (FP) PO SCH (12:34)
[2020-06-19] MEDS: BUDESONIDE/FORMETEROL FUMARATE 160/4.5 mcg INHALER IH SCH ×2 (12:34→23:36)
[2020-06-19] MEDS: amLODIPine BESYLATE 10 MG TABLET (FP) PO SCH (12:34)
[2020-06-19] MEDS ORDERED: cloNIDine HCL 0.1 MG TABLET PO ONE (17:28)
[2020-06-19] MEDS: THIAMINE HCL 100 MG TABLET (FP) PO SCH (23:36)
[2020-06-20] MEDS ORDERED: chlordiazePOXIDE HCL 10 MG CAPSULE PO SCH (05:00)
[2020-06-20] MEDS ORDERED: cloNIDine HCL 0.1 MG TABLET PO ONE (06:15)
[2020-06-20] MEDS: chlordiazePOXIDE HCL 10 MG CAPSULE PO SCH ×2 (06:53→14:35)
[2020-06-20] MEDS ORDERED: METHADONE HCL 10 MG TABLET (FOR DETOX USE ONLY) PO ONE (10:00)
[2020-06-20] MEDS: PRENATAL VITAMINS W/ FOLIC ACID TABLET (FP) PO SCH (12:26)
[2020-06-20] MEDS: NICOTINE 14 MG/24 HOURS TOPICAL PATCH TD SCH (12:33)
[2020-06-20] MEDS: amLODIPine BESYLATE 10 MG TABLET (FP) PO SCH (12:33)
[2020-06-20] MEDS: BUDESONIDE/FORMETEROL FUMARATE 160/4.5 mcg INHALER IH SCH ×2 (12:42→22:41)
[2020-06-20] MEDS: THIAMINE HCL 100 MG TABLET (FP) PO SCH (22:42)
[2020-06-21] MEDS ORDERED: chlordiazePOXIDE HCL 10 MG CAPSULE PO ONE ×2 (05:00)
[2020-06-21] MEDS ORDERED: METHADONE HCL 5 MG TABLET (FOR DETOX USE ONLY) PO ONE (06:00)
[2020-06-21] MEDS: BUDESONIDE/FORMETEROL FUMARATE 160/4.5 mcg INHALER IH SCH (10:34)
[2020-06-21] MEDS: NICOTINE 14 MG/24 HOURS TOPICAL PATCH TD SCH (10:34)
[2020-06-21] MEDS: amLODIPine BESYLATE 10 MG TABLET (FP) PO SCH (10:34)
[2020-06-21] MEDS: PRENATAL VITAMINS W/ FOLIC ACID TABLET (FP) PO SCH (10:35)
[2020-06-21 15:19] VITALS: BP 111/70; PULSE 88; TEMP 98
== END 2020-06-21 16:35 | disposition home or self-care (01) | DRG 897 ==
LOC: YASAS 12:28 → Y6N 15:50
PROVIDERS: ADMIT Allergy & Immunology; ATTEND Allergy & Immunology
PROC: HZ2ZZZZ Detoxification Services for Substance Abuse Treatment (ICD-10-PCS; principal; 2020-06-16)
DX: F11.23 Opioid dependence with withdrawal (principal); Z68.1 Body mass index [BMI] 19.9 or less, adult; F10.230 Alcohol dependence with withdrawal, uncomplicated; F17.210 Nicotine dependence, cigarettes, uncomplicated; I10 Essential (primary) hypertension; H55.00 Unspecified nystagmus; J44.9 Chronic obstructive pulmonary disease, unspecified; R76.11 Nonspecific reaction to tuberculin skin test without active tuberculosis; R63.6 Underweight; E88.09 Other disorders of plasma-protein metabolism, not elsewhere classified
CPT/HCPCS: 36415; 80053; 82962; 85025; 85027; 86780; C9803; J0735; U0003

== ENCOUNTER 2021-03-18 11:14 | Inpatient (IN) | payer OTHER ==
[2021-03-18 12:34] VITALS: BMI 17.1
[2021-03-18] MEDS ORDERED: LORazepam 1 MG TABLET PO PRN (12:50)
[2021-03-18] MEDS ORDERED: cloNIDine HCL 0.1 MG TABLET PO PRN (12:50)
[2021-03-18] MEDS ORDERED: clonazePAM 0.5 MG ODT TABLETS SL PRN (12:50)
[2021-03-18] MEDS ORDERED: MAG HYDROX/AL HYDROX/SIMETH 30 ML UNIT-DOSE CUP PO PRN (12:51)
[2021-03-18] MEDS ORDERED: MAGNESIUM CITRATE 300 ML BOTTLE PO PRN (12:51)
[2021-03-18] MEDS ORDERED: MENTHOL/PHENOL 1 EACH UD MM PRN (12:51)
[2021-03-18] MEDS ORDERED: BISMUTH SUBSALICYLATE 524 MG/30 ML PO PRN (12:51)
[2021-03-18] MEDS ORDERED: NICOTINE 10 MG CARTRIDGE (INHALER) IH PRN (12:51)
[2021-03-18] MEDS ORDERED: ONDANSETRON *ODT* 4 MG TABLET SL PRN (12:51)
[2021-03-18] MEDS ORDERED: MAGNESIUM HYDROX 2400MG/30ML ORAL SUSPENSION 30 ML CUP PO PRN (12:51)
[2021-03-18] MEDS ORDERED: ACETAMINOPHEN 325 MG TABLET (FP) PO PRN ×2 (12:51)
[2021-03-18] MEDS ORDERED: methaDONE HCL 10 MG TABLET (FOR DETOX USE ONLY) PO ONE ×2 (13:30→20:00)
[2021-03-18 14:33] LABS: HEMATOCRIT 42.6 % (35.4-49); HEMOGLOBIN 14.8 GM/dL (11.7-16.9); MCH 34.6 pg (25.7-33.7); MCHC 34.8 g/dl (32.0-35.9); MEAN CELL VOLUME 99.5 fl (80-96); MEAN PLT VOLUME 8.7 fl (7.5-11.1); PLATELET COUNT 324 10^3/uL (134-434); RBC 4.28 M/mm3 (4.00-5.60); RDW 15.7 % (11.9-15.9); WHITE BLOOD COUNT 4.9 K/mm3 (4.0-10.0)
[2021-03-18 14:57] LABS: BLOOD UREA NITROGEN 18.8 mg/dL (7-18); CALCIUM 9.6 mg/dL (8.5-10.1)
[2021-03-18 14:58] LABS: ALBUMIN 3.4 g/dl (3.4-5.0)
[2021-03-18 15:01] LABS: CREATININE 1.3 mg/dL (0.55-1.3)
[2021-03-18 15:02] LABS: BILIRUBIN,TOTAL 0.6 mg/dL (0.2-1); TOT PROT 8.8 g/dl (6.4-8.2)
[2021-03-18] MEDS: IBUPROFEN 400 MG TABLET (FP) PO PRN (15:18)
[2021-03-18] MEDS: PRENATAL VITAMINS W/ FOLIC ACID TABLET (FP) PO SCH (15:19)
[2021-03-18] MEDS: hydrOXYzine PAMOATE 25 MG CAPSULE (FP) PO SCH ×3 (15:20→21:34)
[2021-03-18] MEDS: NICOTINE 7 MG/24 HOURS TOPICAL PATCH TD SCH (15:20)
[2021-03-18] MEDS: LORazepam 2 MG TABLET PO SCH ×3 (15:20→22:00)
[2021-03-18] MEDS: BUDESONIDE/FORMETEROL FUMARATE 160/4.5 mcg INHALER IH SCH ×2 (15:20→21:45)
[2021-03-18] MEDS ORDERED: amLODIPine BESYLATE 10 MG TABLET (FP) PO SCH (15:30)
[2021-03-18] MEDS: MELATONIN 5 MG TABLETS PO SCH (21:34)
[2021-03-18] MEDS: THIAMINE HCL 100 MG TABLET (FP) PO SCH (21:34)
[2021-03-19] MEDS: LORazepam 2 MG TABLET PO SCH ×4 (05:40→22:37)
[2021-03-19] MEDS: hydrOXYzine PAMOATE 25 MG CAPSULE (FP) PO SCH ×5 (05:40→22:38)
[2021-03-19] MEDS ORDERED: methaDONE HCL 10 MG TABLET (FOR DETOX USE ONLY) ONE (10:02)
[2021-03-19] MEDS: BUDESONIDE/FORMETEROL FUMARATE 160/4.5 mcg INHALER IH SCH ×2 (11:00→22:38)
[2021-03-19] MEDS: NICOTINE 7 MG/24 HOURS TOPICAL PATCH TD SCH (11:00)
[2021-03-19] MEDS: amLODIPine BESYLATE 10 MG TABLET (FP) PO SCH (11:00)
[2021-03-19] MEDS: PRENATAL VITAMINS W/ FOLIC ACID TABLET (FP) PO SCH (11:03)
[2021-03-19] MEDS: METHOCARBAMOL 500 MG TABLET PO PRN (11:04)
[2021-03-19] MEDS: IBUPROFEN 400 MG TABLET (FP) PO PRN (19:47)
[2021-03-19] MEDS: MELATONIN 5 MG TABLETS PO SCH (22:38)
[2021-03-19] MEDS: THIAMINE HCL 100 MG TABLET (FP) PO SCH (22:38)
[2021-03-20] MEDS: LORazepam 1 MG TABLET PO SCH ×4 (05:40→22:30)
[2021-03-20] MEDS: hydrOXYzine PAMOATE 25 MG CAPSULE (FP) PO SCH ×5 (05:40→22:30)
[2021-03-20] MEDS ORDERED: methaDONE HCL 10 MG TABLET (FOR DETOX USE ONLY) PO ONE (10:00)
[2021-03-20] MEDS: PRENATAL VITAMINS W/ FOLIC ACID TABLET (FP) PO SCH (10:48)
[2021-03-20] MEDS: NICOTINE 7 MG/24 HOURS TOPICAL PATCH TD SCH (10:49)
[2021-03-20] MEDS: BUDESONIDE/FORMETEROL FUMARATE 160/4.5 mcg INHALER IH SCH ×2 (10:49→22:30)
[2021-03-20] MEDS: amLODIPine BESYLATE 10 MG TABLET (FP) PO SCH (10:49)
[2021-03-20] MEDS: THIAMINE HCL 100 MG TABLET (FP) PO SCH (22:30)
[2021-03-20] MEDS: MELATONIN 5 MG TABLETS PO SCH (22:30)
[2021-03-21] MEDS ORDERED: LORazepam 0.5 MG TABLET PO PRN
[2021-03-21] MEDS: hydrOXYzine PAMOATE 25 MG CAPSULE (FP) PO SCH ×5 (05:32→22:18)
[2021-03-21] MEDS: LORazepam 0.5 MG TABLET PO SCH ×4 (05:32→22:18)
[2021-03-21] MEDS: amLODIPine BESYLATE 10 MG TABLET (FP) PO SCH (08:05)
[2021-03-21] MEDS ORDERED: methaDONE HCL 10 MG TABLET (FOR DETOX USE ONLY) ONE (08:42)
[2021-03-21] MEDS: PRENATAL VITAMINS W/ FOLIC ACID TABLET (FP) PO SCH (10:44)
[2021-03-21] MEDS: BUDESONIDE/FORMETEROL FUMARATE 160/4.5 mcg INHALER IH SCH ×2 (10:44→22:19)
[2021-03-21] MEDS: NICOTINE 7 MG/24 HOURS TOPICAL PATCH TD SCH (10:44)
[2021-03-21] MEDS: LACTULOSE 20 GM/30 ML UDC (FOR ORAL USE ONLY) PO SCH ×2 (13:30→22:18)
[2021-03-21] MEDS: MELATONIN 5 MG TABLETS PO SCH (22:18)
[2021-03-21] MEDS: THIAMINE HCL 100 MG TABLET (FP) PO SCH (22:18)
[2021-03-21] MEDS: METHOCARBAMOL 500 MG TABLET PO PRN (22:20)
[2021-03-22] MEDS ORDERED: LORazepam 0.5 MG TABLET PO ONE (05:00)
[2021-03-22] MEDS: hydrOXYzine PAMOATE 25 MG CAPSULE (FP) PO SCH ×5 (05:51→22:09)
[2021-03-22] MEDS: amLODIPine BESYLATE 10 MG TABLET (FP) PO SCH (06:29)
[2021-03-22] MEDS ORDERED: methaDONE HCL 10 MG TABLET (FOR DETOX USE ONLY) PO ONE (10:00)
[2021-03-22] MEDS: BUDESONIDE/FORMETEROL FUMARATE 160/4.5 mcg INHALER IH SCH ×2 (10:03→22:09)
[2021-03-22] MEDS: PRENATAL VITAMINS W/ FOLIC ACID TABLET (FP) PO SCH (10:03)
[2021-03-22] MEDS: LACTULOSE 20 GM/30 ML UDC (FOR ORAL USE ONLY) PO SCH ×2 (10:04→22:09)
[2021-03-22] MEDS: NICOTINE 7 MG/24 HOURS TOPICAL PATCH TD SCH (10:05)
[2021-03-22] MEDS: THIAMINE HCL 100 MG TABLET (FP) PO SCH (22:09)
[2021-03-22] MEDS: MELATONIN 5 MG TABLETS PO SCH (22:09)
[2021-03-22] MEDS: METHOCARBAMOL 500 MG TABLET PO PRN (22:10)
[2021-03-23] MEDS: hydrOXYzine PAMOATE 25 MG CAPSULE (FP) PO SCH (08:08)
[2021-03-23] MEDS: amLODIPine BESYLATE 10 MG TABLET (FP) PO SCH (08:20)
[2021-03-23 08:56] VITALS: BP 151/77; PULSE 74; TEMP 96.4
== END 2021-03-23 09:32 | disposition home or self-care (01) | DRG 897 ==
LOC: YASAS 11:14 → Y3N 14:01
PROVIDERS: ADMIT Allergy & Immunology; ATTEND Allergy & Immunology
PROC: HZ2ZZZZ Detoxification Services for Substance Abuse Treatment (ICD-10-PCS; principal; 2021-03-18)
DX: F11.23 Opioid dependence with withdrawal (principal); Z68.1 Body mass index [BMI] 19.9 or less, adult; F10.230 Alcohol dependence with withdrawal, uncomplicated; F17.210 Nicotine dependence, cigarettes, uncomplicated; I10 Essential (primary) hypertension; J44.9 Chronic obstructive pulmonary disease, unspecified; R74.01 Elevation of levels of liver transaminase levels; R63.6 Underweight; Z86.11 Personal history of tuberculosis
CPT/HCPCS: 36415; 71046-TC-FY; 80053; 82140; 82962; 83036; 85027; 86780; C9803; U0003; U0005

== ENCOUNTER 2021-07-26 11:46 | Inpatient (IN) | payer OTHER ==
[~2021-07-26 11:46] MED LIST: chlordiazePOXIDE HCL 25 MG CAPSULE PO SCH
[2021-07-26] MEDS ORDERED: IBUPROFEN 400 MG TABLET (FP) PO PRN (12:09)
[2021-07-26] MEDS ORDERED: cloNIDine HCL 0.1 MG TABLET PO PRN (12:09)
[2021-07-26] MEDS ORDERED: MAG HYDROX/AL HYDROX/SIMETH 30 ML UNIT-DOSE CUP PO PRN (12:09)
[2021-07-26] MEDS ORDERED: chlordiazePOXIDE HCL 25 MG CAPSULE PO PRN (12:09)
[2021-07-26] MEDS ORDERED: MENTHOL/PHENOL 1 EACH UD MM PRN (12:09)
[2021-07-26] MEDS ORDERED: ONDANSETRON *ODT* 4 MG TABLET SL PRN (12:09)
[2021-07-26] MEDS ORDERED: BISMUTH SUBSALICYLATE 524 MG/30 ML PO PRN (12:09)
[2021-07-26] MEDS ORDERED: MAGNESIUM CITRATE 300 ML BOTTLE PO PRN (12:09)
[2021-07-26] MEDS ORDERED: ACETAMINOPHEN 325 MG TABLET (FP) PO PRN ×2 (12:09)
[2021-07-26] MEDS ORDERED: MAGNESIUM HYDROX 2400MG/30ML ORAL SUSPENSION 30 ML CUP PO PRN (12:09)
[2021-07-26] MEDS ORDERED: NICOTINE 10 MG CARTRIDGE (INHALER) IH PRN (12:09)
[2021-07-26 12:20] VITALS: BMI 17.2
[2021-07-26] MEDS ORDERED: methaDONE HCL 10 MG TABLET (FOR DETOX USE ONLY) PO ONE (13:30)
[2021-07-26] MEDS: LORazepam 2 MG TABLET PO SCH ×3 (13:53→22:17)
[2021-07-26] MEDS: amLODIPine BESYLATE 10 MG TABLET (FP) PO SCH (14:00)
[2021-07-26] MEDS: hydrOXYzine PAMOATE 25 MG CAPSULE (FP) PO SCH ×3 (14:00→22:20)
[2021-07-26] MEDS: PRENATAL VITAMINS W/ FOLIC ACID TABLET (FP) PO SCH (14:01)
[2021-07-26] MEDS: NICOTINE 14 MG/24 HOURS TOPICAL PATCH TD SCH (14:01)
[2021-07-26] MEDS: LORazepam 1 MG TABLET PO PRN ×3 (14:01→22:20)
[2021-07-26 17:22] LABS: HEMATOCRIT 42.4 % (35.4-49); MCH 33.4 pg (25.7-33.7); MCHC 33.1 g/dl (32.0-35.9); MEAN CELL VOLUME 100.8 fl (80-96); MEAN PLT VOLUME 8.7 fl (7.5-11.1); PLATELET COUNT 264 10^3/uL (134-434); RBC 4.21 M/mm3 (4.00-5.60); RDW 14.6 % (11.9-15.9); WHITE BLOOD COUNT 4.9 K/mm3 (4.0-10.0)
[2021-07-26 17:24] LABS: ALBUMIN 3.7 g/dl (3.4-5.0); CALCIUM 9.8 mg/dL (8.5-10.1)
[2021-07-26 17:25] LABS: BLOOD UREA NITROGEN 14.3 mg/dL (7-18)
[2021-07-26 17:28] LABS: CREATININE 1.2 mg/dL (0.55-1.3)
[2021-07-26 17:29] LABS: BILIRUBIN,TOTAL 0.6 mg/dL (0.2-1); TOT PROT 8.8 g/dl (6.4-8.2)
[2021-07-26] MEDS ORDERED: ALBUTEROL SO4 HFA INHALER IH ONE (17:43)
[2021-07-26] MEDS: BUDESONIDE/FORMETEROL FUMARATE 160/4.5 mcg INHALER IH SCH (22:15)
[2021-07-26] MEDS: MELATONIN 5 MG TABLETS PO SCH (22:19)
[2021-07-26] MEDS: THIAMINE HCL 100 MG TABLET (FP) PO SCH (22:20)
[2021-07-26] MEDS: LACTULOSE 20 GM/30 ML UDC (FOR ORAL USE ONLY) PO SCH (22:20)
[2021-07-27] MEDS: hydrOXYzine PAMOATE 25 MG CAPSULE (FP) PO SCH ×5 (06:33→22:40)
[2021-07-27] MEDS: LORazepam 1 MG TABLET PO PRN (06:35)
[2021-07-27] MEDS: LORazepam 2 MG TABLET PO SCH (06:42)
[2021-07-27] MEDS ORDERED: methaDONE HCL 10 MG TABLET (FOR DETOX USE ONLY) ONE (10:07)
[2021-07-27] MEDS: PRENATAL VITAMINS W/ FOLIC ACID TABLET (FP) PO SCH (11:05)
[2021-07-27] MEDS: METHOCARBAMOL 500 MG TABLET PO PRN (11:05)
[2021-07-27] MEDS: LORazepam 1 MG TABLET PO SCH ×3 (11:06→23:07)
[2021-07-27] MEDS: amLODIPine BESYLATE 10 MG TABLET (FP) PO SCH (11:06)
[2021-07-27] MEDS: BUDESONIDE/FORMETEROL FUMARATE 160/4.5 mcg INHALER IH SCH ×2 (11:09→22:40)
[2021-07-27] MEDS: LACTULOSE 20 GM/30 ML UDC (FOR ORAL USE ONLY) PO SCH ×2 (11:11→22:39)
[2021-07-27] MEDS: NICOTINE 14 MG/24 HOURS TOPICAL PATCH TD SCH (11:11)
[2021-07-27] MEDS: THIAMINE HCL 100 MG TABLET (FP) PO SCH (22:39)
[2021-07-27] MEDS: MELATONIN 5 MG TABLETS PO SCH (22:40)
[2021-07-28] MEDS ORDERED: chlordiazePOXIDE HCL 25 MG CAPSULE PO SCH (05:00)
[2021-07-28] MEDS: LORazepam 1 MG TABLET PO SCH ×4 (06:26→22:40)
[2021-07-28] MEDS: hydrOXYzine PAMOATE 25 MG CAPSULE (FP) PO SCH ×5 (06:26→22:40)
[2021-07-28] MEDS ORDERED: methaDONE HCL 10 MG TABLET (FOR DETOX USE ONLY) PO ONE (10:00)
[2021-07-28] MEDS: LACTULOSE 20 GM/30 ML UDC (FOR ORAL USE ONLY) PO SCH ×2 (10:29→22:39)
[2021-07-28] MEDS: METHOCARBAMOL 500 MG TABLET PO PRN (10:29)
[2021-07-28] MEDS: amLODIPine BESYLATE 10 MG TABLET (FP) PO SCH (10:29)
[2021-07-28] MEDS: NICOTINE 14 MG/24 HOURS TOPICAL PATCH TD SCH (10:30)
[2021-07-28] MEDS: PRENATAL VITAMINS W/ FOLIC ACID TABLET (FP) PO SCH (10:32)
[2021-07-28] MEDS: BUDESONIDE/FORMETEROL FUMARATE 160/4.5 mcg INHALER IH SCH ×2 (10:35→22:40)
[2021-07-28] MEDS: MELATONIN 5 MG TABLETS PO SCH (22:39)
[2021-07-28] MEDS: THIAMINE HCL 100 MG TABLET (FP) PO SCH (22:40)
[2021-07-29] MEDS ORDERED: chlordiazePOXIDE HCL 10 MG CAPSULE PO PRN
[2021-07-29] MEDS ORDERED: LORazepam 0.5 MG TABLET PO PRN
[2021-07-29] MEDS ORDERED: chlordiazePOXIDE HCL 10 MG CAPSULE PO SCH (05:00)
[2021-07-29] MEDS: LORazepam 0.5 MG TABLET PO SCH ×4 (06:21→23:02)
[2021-07-29] MEDS: hydrOXYzine PAMOATE 25 MG CAPSULE (FP) PO SCH ×5 (06:21→23:02)
[2021-07-29] MEDS ORDERED: methaDONE HCL 10 MG TABLET (FOR DETOX USE ONLY) ONE (09:13)
[2021-07-29] MEDS: amLODIPine BESYLATE 10 MG TABLET (FP) PO SCH (10:38)
[2021-07-29] MEDS: NICOTINE 14 MG/24 HOURS TOPICAL PATCH TD SCH (10:40)
[2021-07-29] MEDS: LACTULOSE 20 GM/30 ML UDC (FOR ORAL USE ONLY) PO SCH ×4 (10:40→22:58)
[2021-07-29] MEDS: BUDESONIDE/FORMETEROL FUMARATE 160/4.5 mcg INHALER IH SCH ×2 (10:41→23:03)
[2021-07-29] MEDS: PRENATAL VITAMINS W/ FOLIC ACID TABLET (FP) PO SCH (10:41)
[2021-07-29] MEDS: METHOCARBAMOL 500 MG TABLET PO PRN (19:06)
[2021-07-29] MEDS: THIAMINE HCL 100 MG TABLET (FP) PO SCH (22:59)
[2021-07-29] MEDS: MELATONIN 5 MG TABLETS PO SCH (23:02)
[2021-07-30] MEDS ORDERED: LORazepam 0.5 MG TABLET PO ONE (05:00)
[2021-07-30] MEDS ORDERED: chlordiazePOXIDE HCL 10 MG CAPSULE PO SCH (05:00)
[2021-07-30] MEDS: hydrOXYzine PAMOATE 25 MG CAPSULE (FP) PO SCH ×5 (06:15→22:54)
[2021-07-30] MEDS ORDERED: methaDONE HCL 10 MG TABLET (FOR DETOX USE ONLY) PO ONE (10:00)
[2021-07-30] MEDS: LACTULOSE 20 GM/30 ML UDC (FOR ORAL USE ONLY) PO SCH ×4 (11:02→22:55)
[2021-07-30] MEDS: amLODIPine BESYLATE 10 MG TABLET (FP) PO SCH (11:04)
[2021-07-30] MEDS: NICOTINE 14 MG/24 HOURS TOPICAL PATCH TD SCH (11:04)
[2021-07-30] MEDS: BUDESONIDE/FORMETEROL FUMARATE 160/4.5 mcg INHALER IH SCH ×2 (11:37→22:54)
[2021-07-30] MEDS: PRENATAL VITAMINS W/ FOLIC ACID TABLET (FP) PO SCH (11:37)
[2021-07-30] MEDS: MELATONIN 5 MG TABLETS PO SCH (22:54)
[2021-07-30] MEDS: THIAMINE HCL 100 MG TABLET (FP) PO SCH (22:54)
[2021-07-31] MEDS ORDERED: chlordiazePOXIDE HCL 10 MG CAPSULE PO ONE (05:00)
[2021-07-31] MEDS: hydrOXYzine PAMOATE 25 MG CAPSULE (FP) PO SCH ×2 (06:34→10:40)
[2021-07-31 09:08] VITALS: PULSE 71; TEMP 96.8
[2021-07-31 09:37] VITALS: BP 118/66
[2021-07-31] MEDS: LACTULOSE 20 GM/30 ML UDC (FOR ORAL USE ONLY) PO SCH (10:38)
[2021-07-31] MEDS: PRENATAL VITAMINS W/ FOLIC ACID TABLET (FP) PO SCH (10:39)
[2021-07-31] MEDS: amLODIPine BESYLATE 10 MG TABLET (FP) PO SCH (10:39)
[2021-07-31] MEDS: NICOTINE 14 MG/24 HOURS TOPICAL PATCH TD SCH (10:39)
[2021-07-31] MEDS: BUDESONIDE/FORMETEROL FUMARATE 160/4.5 mcg INHALER IH SCH (10:39)
== END 2021-07-31 10:46 | disposition home or self-care (01) | DRG 897 ==
LOC: YASAS 11:46 → Y6N 13:01
PROVIDERS: ADMIT Allergy & Immunology; ATTEND Allergy & Immunology
PROC: HZ2ZZZZ Detoxification Services for Substance Abuse Treatment (ICD-10-PCS; principal; 2021-07-26)
DX: F11.23 Opioid dependence with withdrawal (principal); Z68.1 Body mass index [BMI] 19.9 or less, adult; F10.230 Alcohol dependence with withdrawal, uncomplicated; F17.210 Nicotine dependence, cigarettes, uncomplicated; I10 Essential (primary) hypertension; J43.1 Panlobular emphysema; H55.00 Unspecified nystagmus; R79.89 Other specified abnormal findings of blood chemistry; R63.6 Underweight
CPT/HCPCS: 36415; 80053; 82140; 85027; 86780; C9803; U0003; U0005

== ENCOUNTER 2021-09-20 12:12 | Inpatient (IN) | payer OTHER ==
[2021-09-20] MEDS ORDERED: BISMUTH SUBSALICYLATE 524 MG/30 ML PO PRN (12:55)
[2021-09-20] MEDS ORDERED: ONDANSETRON *ODT* 4 MG TABLET SL PRN (12:55)
[2021-09-20] MEDS ORDERED: METHOCARBAMOL 500 MG TABLET PO PRN (12:55)
[2021-09-20] MEDS ORDERED: IBUPROFEN 400 MG TABLET (FP) PO PRN (12:55)
[2021-09-20] MEDS ORDERED: MAG HYDROX/AL HYDROX/SIMETH 30 ML UNIT-DOSE CUP PO PRN (12:55)
[2021-09-20] MEDS ORDERED: NICOTINE 10 MG CARTRIDGE (INHALER) IH PRN (12:55)
[2021-09-20] MEDS ORDERED: MAGNESIUM HYDROX 2400MG/30ML ORAL SUSPENSION 30 ML CUP PO PRN (12:55)
[2021-09-20] MEDS ORDERED: chlordiazePOXIDE HCL 25 MG CAPSULE PO PRN (12:55)
[2021-09-20] MEDS ORDERED: cloNIDine HCL 0.1 MG TABLET PO PRN (12:55)
[2021-09-20] MEDS ORDERED: ACETAMINOPHEN 325 MG TABLET (FP) PO PRN ×2 (12:55)
[2021-09-20] MEDS ORDERED: MENTHOL/PHENOL 1 EACH UD MM PRN (12:55)
[2021-09-20] MEDS ORDERED: LOPERAMIDE HCL 2 MG CAPSULE PO PRN (12:55)
[2021-09-20] MEDS ORDERED: MAGNESIUM CITRATE 300 ML BOTTLE PO PRN (12:55)
[2021-09-20] MEDS ORDERED: ALBUTEROL SO4 HFA INHALER IH PRN (12:58)
[2021-09-20 13:51] VITALS: BMI 16.5
[2021-09-20] MEDS ORDERED: methaDONE HCL 10 MG TABLET (FOR DETOX USE ONLY) PO ONE (14:30)
[2021-09-20] MEDS: hydrOXYzine PAMOATE 25 MG CAPSULE (FP) PO SCH ×3 (15:04→22:13)
[2021-09-20] MEDS: PRENATAL VITAMINS W/ FOLIC ACID TABLET (FP) PO SCH (15:04)
[2021-09-20] MEDS: chlordiazePOXIDE HCL 25 MG CAPSULE PO SCH ×2 (17:41→22:14)
[2021-09-20 18:12] LABS: HEMATOCRIT 38.6 % (35.4-49); HEMOGLOBIN 13.3 GM/dL (11.7-16.9); MCH 33.5 pg (25.7-33.7); MCHC 34.6 g/dl (32.0-35.9); MEAN CELL VOLUME 96.8 fl (80-96); MEAN PLT VOLUME 7.9 fl (7.5-11.1); PLATELET COUNT 389 10^3/uL (134-434); RBC 3.98 M/mm3 (4.00-5.60); RDW 14.3 % (11.9-15.9)
[2021-09-20 18:14] LABS: CALCIUM 9.3 mg/dL (8.5-10.1)
[2021-09-20 18:15] LABS: ALBUMIN 3.4 g/dl (3.4-5.0)
[2021-09-20 18:16] LABS: CREATININE 1.2 mg/dL (0.55-1.3)
[2021-09-20 18:20] LABS: BILIRUBIN,TOTAL 0.3 mg/dL (0.2-1); TOT PROT 8.6 g/dl (6.4-8.2)
[2021-09-20] MEDS: THIAMINE HCL 100 MG TABLET (FP) PO SCH (22:13)
[2021-09-20] MEDS: MELATONIN 5 MG TABLETS PO SCH (22:13)
[2021-09-20] MEDS: BUDESONIDE/FORMETEROL FUMARATE 160/4.5 mcg INHALER IH SCH (22:16)
[2021-09-21] MEDS: chlordiazePOXIDE HCL 25 MG CAPSULE PO SCH ×4 (05:43→22:10)
[2021-09-21] MEDS: hydrOXYzine PAMOATE 25 MG CAPSULE (FP) PO SCH ×5 (05:43→22:09)
[2021-09-21] MEDS ORDERED: methaDONE HCL 10 MG TABLET (FOR DETOX USE ONLY) ONE (09:11)
[2021-09-21] MEDS: PRENATAL VITAMINS W/ FOLIC ACID TABLET (FP) PO SCH (10:45)
[2021-09-21] MEDS: BUDESONIDE/FORMETEROL FUMARATE 160/4.5 mcg INHALER IH SCH ×2 (10:45→22:13)
[2021-09-21] MEDS: amLODIPine BESYLATE 10 MG TABLET (FP) PO SCH (11:41)
[2021-09-21] MEDS: THIAMINE HCL 100 MG TABLET (FP) PO SCH (22:09)
[2021-09-21] MEDS: LACTULOSE 20 GM/30 ML UDC (FOR ORAL USE ONLY) PO SCH (22:14)
[2021-09-21] MEDS: MELATONIN 5 MG TABLETS PO SCH (22:14)
[2021-09-22] MEDS: hydrOXYzine PAMOATE 25 MG CAPSULE (FP) PO SCH ×5 (05:46→22:29)
[2021-09-22] MEDS: chlordiazePOXIDE HCL 25 MG CAPSULE PO SCH ×4 (05:46→22:29)
[2021-09-22] MEDS: LACTULOSE 20 GM/30 ML UDC (FOR ORAL USE ONLY) PO SCH ×3 (05:52→22:31)
[2021-09-22] MEDS ORDERED: methaDONE HCL 10 MG TABLET (FOR DETOX USE ONLY) PO ONE (10:00)
[2021-09-22] MEDS: amLODIPine BESYLATE 10 MG TABLET (FP) PO SCH (10:12)
[2021-09-22] MEDS: PRENATAL VITAMINS W/ FOLIC ACID TABLET (FP) PO SCH (10:12)
[2021-09-22] MEDS: BUDESONIDE/FORMETEROL FUMARATE 160/4.5 mcg INHALER IH SCH ×2 (10:13→22:32)
[2021-09-22] MEDS: THIAMINE HCL 100 MG TABLET (FP) PO SCH (22:29)
[2021-09-22] MEDS: MELATONIN 5 MG TABLETS PO SCH (22:29)
[2021-09-22 23:07] LABS: SARS-CoV-2 NAA Not Detected (Not Detected)
[2021-09-23] MEDS ORDERED: chlordiazePOXIDE HCL 10 MG CAPSULE PO PRN
[2021-09-23] MEDS: hydrOXYzine PAMOATE 25 MG CAPSULE (FP) PO SCH ×5 (05:38→22:38)
[2021-09-23] MEDS: chlordiazePOXIDE HCL 10 MG CAPSULE PO SCH ×4 (05:39→22:38)
[2021-09-23] MEDS: LACTULOSE 20 GM/30 ML UDC (FOR ORAL USE ONLY) PO SCH ×3 (05:39→22:38)
[2021-09-23] MEDS ORDERED: methaDONE HCL 10 MG TABLET (FOR DETOX USE ONLY) ONE (09:36)
[2021-09-23] MEDS: PRENATAL VITAMINS W/ FOLIC ACID TABLET (FP) PO SCH (10:46)
[2021-09-23] MEDS: BUDESONIDE/FORMETEROL FUMARATE 160/4.5 mcg INHALER IH SCH ×2 (10:46→22:39)
[2021-09-23] MEDS: amLODIPine BESYLATE 10 MG TABLET (FP) PO SCH (12:51)
[2021-09-23] MEDS: THIAMINE HCL 100 MG TABLET (FP) PO SCH (22:38)
[2021-09-23] MEDS: MELATONIN 5 MG TABLETS PO SCH (22:38)
[2021-09-24] MEDS: hydrOXYzine PAMOATE 25 MG CAPSULE (FP) PO SCH ×5 (05:42→22:17)
[2021-09-24] MEDS: chlordiazePOXIDE HCL 10 MG CAPSULE PO SCH ×2 (05:42→17:49)
[2021-09-24] MEDS: LACTULOSE 20 GM/30 ML UDC (FOR ORAL USE ONLY) PO SCH ×3 (05:42→22:17)
[2021-09-24] MEDS ORDERED: methaDONE HCL 10 MG TABLET (FOR DETOX USE ONLY) PO ONE (10:00)
[2021-09-24] MEDS: PRENATAL VITAMINS W/ FOLIC ACID TABLET (FP) PO SCH (10:24)
[2021-09-24] MEDS: BUDESONIDE/FORMETEROL FUMARATE 160/4.5 mcg INHALER IH SCH ×2 (10:24→22:17)
[2021-09-24] MEDS: amLODIPine BESYLATE 10 MG TABLET (FP) PO SCH (10:25)
[2021-09-24] MEDS: THIAMINE HCL 100 MG TABLET (FP) PO SCH (22:17)
[2021-09-24] MEDS: MELATONIN 5 MG TABLETS PO SCH (22:17)
[2021-09-25] MEDS ORDERED: chlordiazePOXIDE HCL 10 MG CAPSULE PO ONE (05:00)
[2021-09-25] MEDS: LACTULOSE 20 GM/30 ML UDC (FOR ORAL USE ONLY) PO SCH (05:41)
[2021-09-25] MEDS: hydrOXYzine PAMOATE 25 MG CAPSULE (FP) PO SCH (05:46)
[2021-09-25 10:13] VITALS: BP 119/62; PULSE 95; TEMP 97.8
== END 2021-09-25 10:25 | disposition home or self-care (01) | DRG 897 ==
LOC: YASAS 12:12 → Y6N 14:16
PROVIDERS: ADMIT Allergy & Immunology; ATTEND Allergy & Immunology
PROC: HZ2ZZZZ Detoxification Services for Substance Abuse Treatment (ICD-10-PCS; principal; 2021-09-20)
DX: F11.23 Opioid dependence with withdrawal (principal); Z68.1 Body mass index [BMI] 19.9 or less, adult; E72.20 Disorder of urea cycle metabolism, unspecified; F10.230 Alcohol dependence with withdrawal, uncomplicated; F17.210 Nicotine dependence, cigarettes, uncomplicated; I10 Essential (primary) hypertension; J43.1 Panlobular emphysema; R62.7 Adult failure to thrive; R63.6 Underweight
CPT/HCPCS: 36415; 80053; 82140; 82947; 85027; 86780; 87811; C9803-CS; J0735; U0003; U0005

== ENCOUNTER 2022-05-24 10:53 | Inpatient (IN) | payer OTHER ==
[2022-05-24] MEDS ORDERED: cloNIDine HCL 0.1 MG TABLET PO PRN (12:29)
[2022-05-24] MEDS ORDERED: ONDANSETRON *ODT* 4 MG TABLET SL PRN (12:29)
[2022-05-24] MEDS ORDERED: BENZOCAINE/MENTHOL (CHLORASEPTIC ) LOZENGE MM PRN (12:29)
[2022-05-24] MEDS ORDERED: NALOXONE HCL (KLOXXADO) 8 MG SPRAY NS PRN (12:29)
[2022-05-24] MEDS ORDERED: IBUPROFEN 400 MG TABLET (FP) PO PRN (12:29)
[2022-05-24] MEDS ORDERED: hydrOXYzine PAMOATE 25 MG CAPSULE (FP) PO PRN (12:29)
[2022-05-24] MEDS ORDERED: MAG HYDROX/AL HYDROX/SIMETH 30 ML UNIT-DOSE CUP PO PRN (12:29)
[2022-05-24] MEDS ORDERED: BISMUTH SUBSALICYLATE 524 MG/30 ML PO PRN (12:29)
[2022-05-24] MEDS ORDERED: ACETAMINOPHEN 325 MG TABLET (FP) PO PRN ×2 (12:29)
[2022-05-24] MEDS ORDERED: POLYETHYLENE GLYCOL (HEALTHYLAX) 3350 17 GM PACKET PO PRN (12:29)
[2022-05-24] MEDS ORDERED: IBUPROFEN 600 MG TABLET (FP) PO PRN (12:29)
[2022-05-24] MEDS ORDERED: LOPERAMIDE HCL 2 MG CAPSULE PO PRN (12:29)
[2022-05-24] MEDS ORDERED: MAGNESIUM HYDROX 2400MG/30ML ORAL SUSPENSION 30 ML CUP PO PRN (12:29)
[2022-05-24] MEDS ORDERED: LORazepam 1 MG TABLET PO PRN (12:29)
[2022-05-24] MEDS ORDERED: DICYCLOMINE HCL 10 MG CAPSULE PO PRN (12:29)
[2022-05-24] MEDS ORDERED: METHOCARBAMOL 500 MG TABLET PO PRN (12:29)
[2022-05-24] MEDS ORDERED: NICOTINE 10 MG CARTRIDGE (INHALER) IH PRN (12:29)
[2022-05-24] MEDS ORDERED: methaDONE HCL 10 MG TABLET (FOR DETOX USE ONLY) PO ONE (13:00)
[2022-05-24] MEDS ORDERED: LORazepam 2 MG TABLET PO ONE (13:00)
[2022-05-24] MEDS ORDERED: methaDONE HCL 10 MG TABLET (FOR DETOX USE ONLY) ONE (13:58)
[2022-05-24] MEDS ORDERED: LORazepam 2 MG TABLET ONE (13:59)
[2022-05-24] MEDS: NICOTINE 7 MG/24 HOURS TOPICAL PATCH TD SCH (14:05)
[2022-05-24 16:37] LABS: HEMATOCRIT 35.6 % (35.4-49); HEMOGLOBIN 12.1 GM/dL (11.7-16.9); MCH 34.6 pg (25.7-33.7); MCHC 34.1 g/dl (32.0-35.9); MEAN CELL VOLUME 101.5 fl (80-96); MEAN PLT VOLUME 8.4 fl (7.5-11.1); PLATELET COUNT 228 10^3/uL (134-434); RBC 3.51 M/mm3 (4.00-5.60); RDW 14.5 % (11.9-15.9)
[2022-05-24 16:47] LABS: ALBUMIN 3.3 g/dl (3.4-5.0); BLOOD UREA NITROGEN 16.9 mg/dL (7-18)
[2022-05-24 16:48] LABS: CALCIUM 9.1 mg/dL (8.5-10.1)
[2022-05-24 16:50] LABS: CREATININE 1.1 mg/dL (0.55-1.3)
[2022-05-24 16:51] LABS: BILIRUBIN,TOTAL 0.4 mg/dL (0.2-1); TOT PROT 7.6 g/dl (6.4-8.2)
[2022-05-24] MEDS: LORazepam 2 MG TABLET PO SCH ×2 (18:07→22:15)
[2022-05-24] MEDS: MELATONIN 5 MG TABLETS PO SCH (22:14)
[2022-05-24] MEDS: THIAMINE HCL 100 MG TABLET (FP) PO SCH (22:14)
[2022-05-25] MEDS: LORazepam 2 MG TABLET PO SCH ×4 (06:12→22:13)
[2022-05-25] MEDS: ALBUTEROL SO4 HFA INHALER IH PRN ×2 (06:19→11:09)
[2022-05-25] MEDS: PRENATAL VITAMINS W/ FOLIC ACID TABLET (FP) PO SCH (10:07)
[2022-05-25] MEDS: amLODIPine BESYLATE 10 MG TABLET (FP) PO SCH (10:07)
[2022-05-25] MEDS: NICOTINE 7 MG/24 HOURS TOPICAL PATCH TD SCH (10:08)
[2022-05-25] MEDS: FLUTICASONE/UMECLIDIN/VILANTER(200-62.5-25 TRELEGY ELLIPTA) INAHLER IH SCH (11:24)
[2022-05-25 12:45] VITALS: BMI 17.7
[2022-05-25] MEDS: THIAMINE HCL 100 MG TABLET (FP) PO SCH (22:13)
[2022-05-25] MEDS: MELATONIN 5 MG TABLETS PO SCH (22:13)
[2022-05-26] MEDS: LORazepam 1 MG TABLET PO SCH ×4 (05:59→22:04)
[2022-05-26] MEDS: FLUTICASONE/UMECLIDIN/VILANTER(200-62.5-25 TRELEGY ELLIPTA) INAHLER IH SCH (09:54)
[2022-05-26] MEDS: amLODIPine BESYLATE 10 MG TABLET (FP) PO SCH (09:54)
[2022-05-26] MEDS: PRENATAL VITAMINS W/ FOLIC ACID TABLET (FP) PO SCH (09:54)
[2022-05-26] MEDS: NICOTINE 7 MG/24 HOURS TOPICAL PATCH TD SCH (09:54)
[2022-05-26] MEDS ORDERED: methaDONE HCL 10 MG TABLET (FOR DETOX USE ONLY) PO ONE (10:00)
[2022-05-26] MEDS: MELATONIN 5 MG TABLETS PO SCH (22:03)
[2022-05-26] MEDS: THIAMINE HCL 100 MG TABLET (FP) PO SCH (22:03)
[2022-05-26] MEDS: ALBUTEROL SO4 HFA INHALER IH PRN (22:06)
[2022-05-27] MEDS ORDERED: LORazepam 0.5 MG TABLET PO PRN
[2022-05-27] MEDS: LORazepam 0.5 MG TABLET PO SCH ×2 (05:32→10:21)
[2022-05-27 10:05] VITALS: BP 115/71; PULSE 77; RESP 16; TEMP 98
[2022-05-27] MEDS: FLUTICASONE/UMECLIDIN/VILANTER(200-62.5-25 TRELEGY ELLIPTA) INAHLER IH SCH (10:20)
[2022-05-27] MEDS: ALBUTEROL SO4 HFA INHALER IH PRN (10:20)
[2022-05-27] MEDS: amLODIPine BESYLATE 10 MG TABLET (FP) PO SCH (10:21)
[2022-05-27] MEDS: PRENATAL VITAMINS W/ FOLIC ACID TABLET (FP) PO SCH (10:22)
[2022-05-27] MEDS: NICOTINE 7 MG/24 HOURS TOPICAL PATCH TD SCH (10:22)
[2022-05-28] MEDS ORDERED: LORazepam 0.5 MG TABLET PO ONE (05:00)
[2022-05-28] MEDS ORDERED: methaDONE HCL 10 MG TABLET (FOR DETOX USE ONLY) PO ONE (10:00)
== END 2022-05-27 12:18 | disposition home or self-care (01) | DRG 897 ==
LOC: YASAS 10:53 → Y3N 13:35
PROVIDERS: ADMIT Allergy & Immunology; ATTEND Family Medicine Addiction Medicine
PROC: HZ2ZZZZ Detoxification Services for Substance Abuse Treatment (ICD-10-PCS; principal; 2022-05-24)
DX: F11.23 Opioid dependence with withdrawal (principal); F10.230 Alcohol dependence with withdrawal, uncomplicated; F17.210 Nicotine dependence, cigarettes, uncomplicated; I10 Essential (primary) hypertension; J43.1 Panlobular emphysema; R79.89 Other specified abnormal findings of blood chemistry; R63.6 Underweight; Z68.1 Body mass index [BMI] 19.9 or less, adult
CPT/HCPCS: 36415; 71046-TC-FY; 80053; 82140; 85027; 86780; C9803-CS; U0003; U0005

== ENCOUNTER 2022-07-04 11:21 | Inpatient (IN) | payer OTHER ==
[2022-07-04 11:39] VITALS: BMI 17.9
[2022-07-04] MEDS ORDERED: chlordiazePOXIDE HCL 25 MG CAPSULE PO PRN (12:31)
[2022-07-04] MEDS ORDERED: MAG HYDROX/AL HYDROX/SIMETH 30 ML UNIT-DOSE CUP PO PRN (12:31)
[2022-07-04] MEDS ORDERED: NICOTINE 10 MG CARTRIDGE (INHALER) IH PRN (12:31)
[2022-07-04] MEDS ORDERED: cloNIDine HCL 0.1 MG TABLET PO PRN (12:31)
[2022-07-04] MEDS ORDERED: MAGNESIUM HYDROX 2400MG/30ML ORAL SUSPENSION 30 ML CUP PO PRN (12:31)
[2022-07-04] MEDS ORDERED: BENZOCAINE/MENTHOL (CHLORASEPTIC ) LOZENGE MM PRN (12:31)
[2022-07-04] MEDS ORDERED: hydrOXYzine PAMOATE 25 MG CAPSULE (FP) PO PRN (12:31)
[2022-07-04] MEDS ORDERED: IBUPROFEN 400 MG TABLET (FP) PO PRN (12:31)
[2022-07-04] MEDS ORDERED: POLYETHYLENE GLYCOL (HEALTHYLAX) 3350 17 GM PACKET PO PRN (12:31)
[2022-07-04] MEDS ORDERED: DICYCLOMINE HCL 10 MG CAPSULE PO PRN (12:31)
[2022-07-04] MEDS ORDERED: ONDANSETRON *ODT* 4 MG TABLET SL PRN (12:31)
[2022-07-04] MEDS ORDERED: LOPERAMIDE HCL 2 MG CAPSULE PO PRN (12:31)
[2022-07-04] MEDS ORDERED: IBUPROFEN 600 MG TABLET (FP) PO PRN (12:31)
[2022-07-04] MEDS ORDERED: methaDONE HCL 10 MG TABLET (FOR DETOX USE ONLY) PO ONE ×2 (12:31→14:58)
[2022-07-04] MEDS ORDERED: ACETAMINOPHEN 325 MG TABLET (FP) PO PRN ×2 (12:31)
[2022-07-04] MEDS ORDERED: NICOTINE POLACRILEX 2 MG GUM BUC PRN (12:31)
[2022-07-04] MEDS ORDERED: NALOXONE HCL (KLOXXADO) 8 MG SPRAY NS PRN (12:31)
[2022-07-04] MEDS ORDERED: METHOCARBAMOL 500 MG TABLET PO PRN (12:31)
[2022-07-04] MEDS ORDERED: BISMUTH SUBSALICYLATE 262 MG/15 ML BTL PO PRN (12:31)
[2022-07-04] MEDS ORDERED: ALBUTEROL SO4 HFA INHALER IH PRN (13:32)
[2022-07-04] MEDS: PRENATAL VITAMINS W/ FOLIC ACID TABLET (FP) PO SCH (15:23)
[2022-07-04 17:02] LABS: MCHC 33.2 g/dl (32.0-35.9); MEAN CELL VOLUME 102.3 fl (80-96); MEAN PLT VOLUME 8.1 fl (7.5-11.1); PLATELET COUNT 239 10^3/uL (134-434); RBC 3.51 M/mm3 (4.00-5.60); RDW 14.9 % (11.9-15.9); WHITE BLOOD COUNT 4.2 K/mm3 (4.0-10.0)
[2022-07-04 17:13] LABS: CALCIUM 8.8 mg/dL (8.5-10.1)
[2022-07-04 17:14] LABS: ALBUMIN 3.3 g/dl (3.4-5.0); BLOOD UREA NITROGEN 12.3 mg/dL (7-18)
[2022-07-04 17:19] LABS: BILIRUBIN,TOTAL 0.4 mg/dL (0.2-1); TOT PROT 8.1 g/dl (6.4-8.2)
[2022-07-04] MEDS: chlordiazePOXIDE HCL 25 MG CAPSULE PO SCH ×2 (17:23→22:14)
[2022-07-04] MEDS: ALBUTEROL IH PRN (17:25)
[2022-07-04] MEDS: THIAMINE HCL 100 MG TABLET (FP) PO SCH (22:14)
[2022-07-04] MEDS: MELATONIN 5 MG TABLETS PO SCH (22:14)
[2022-07-05] MEDS: chlordiazePOXIDE HCL 25 MG CAPSULE PO SCH ×4 (05:17→22:20)
[2022-07-05] MEDS: ALBUTEROL IH PRN (09:25)
[2022-07-05] MEDS: amLODIPine BESYLATE 5 MG TABLET (FP) PO SCH (09:32)
[2022-07-05] MEDS: PRENATAL VITAMINS W/ FOLIC ACID TABLET (FP) PO SCH (09:32)
[2022-07-05] MEDS ORDERED: FLUTICASONE/UMECLIDIN/VILANTER(200-62.5-25 TRELEGY ELLIPTA) INAHLER IH SCH (10:00)
[2022-07-05] MEDS: THIAMINE HCL 100 MG TABLET (FP) PO SCH (22:19)
[2022-07-05] MEDS: MELATONIN 5 MG TABLETS PO SCH (22:20)
[2022-07-06] MEDS: chlordiazePOXIDE HCL 25 MG CAPSULE PO SCH ×4 (05:37→22:34)
[2022-07-06] MEDS: ALBUTEROL IH PRN (05:39)
[2022-07-06] MEDS: FLUTICASONE/UMECLIDIN/VILANTER(200-62.5-25 TRELEGY ELLIPTA) INAHLER IH SCH (07:20)
[2022-07-06] MEDS ORDERED: methaDONE HCL 10 MG TABLET (FOR DETOX USE ONLY) PO ONE (10:00)
[2022-07-06] MEDS: PRENATAL VITAMINS W/ FOLIC ACID TABLET (FP) PO SCH (10:17)
[2022-07-06] MEDS: amLODIPine BESYLATE 5 MG TABLET (FP) PO SCH (10:17)
[2022-07-06] MEDS: THIAMINE HCL 100 MG TABLET (FP) PO SCH (22:34)
[2022-07-06] MEDS: MELATONIN 5 MG TABLETS PO SCH (22:34)
[2022-07-07] MEDS ORDERED: chlordiazePOXIDE HCL 10 MG CAPSULE PO PRN
[2022-07-07] MEDS: chlordiazePOXIDE HCL 10 MG CAPSULE PO SCH ×4 (05:40→22:31)
[2022-07-07] MEDS: FLUTICASONE/UMECLIDIN/VILANTER(200-62.5-25 TRELEGY ELLIPTA) INAHLER IH SCH (05:41)
[2022-07-07] MEDS: ALBUTEROL IH PRN ×2 (05:41→10:24)
[2022-07-07] MEDS: PRENATAL VITAMINS W/ FOLIC ACID TABLET (FP) PO SCH (10:26)
[2022-07-07] MEDS: amLODIPine BESYLATE 5 MG TABLET (FP) PO SCH (10:29)
[2022-07-07] MEDS: MELATONIN 5 MG TABLETS PO SCH (22:30)
[2022-07-07] MEDS: THIAMINE HCL 100 MG TABLET (FP) PO SCH (22:30)
[2022-07-08] MEDS ORDERED: chlordiazePOXIDE HCL 10 MG CAPSULE PO SCH (05:00)
[2022-07-08] MEDS: FLUTICASONE/UMECLIDIN/VILANTER(200-62.5-25 TRELEGY ELLIPTA) INAHLER IH SCH (05:42)
[2022-07-08 06:42] VITALS: RESP 18
[2022-07-08 09:50] VITALS: BP 106/68; PULSE 72; TEMP 97.6
[2022-07-08] MEDS ORDERED: methaDONE HCL 10 MG TABLET (FOR DETOX USE ONLY) PO ONE (10:00)
[2022-07-08] MEDS: PRENATAL VITAMINS W/ FOLIC ACID TABLET (FP) PO SCH (10:09)
[2022-07-08] MEDS: ALBUTEROL IH PRN (10:10)
[2022-07-08] MEDS: amLODIPine BESYLATE 5 MG TABLET (FP) PO SCH (10:10)
[2022-07-09] MEDS ORDERED: chlordiazePOXIDE HCL 10 MG CAPSULE PO ONE (05:00)
== END 2022-07-08 12:03 | disposition home or self-care (01) | DRG 897 ==
LOC: YASAS 11:21 → Y6N 14:13
PROVIDERS: ADMIT Allergy & Immunology; ATTEND Surgery
PROC: HZ2ZZZZ Detoxification Services for Substance Abuse Treatment (ICD-10-PCS; principal; 2022-07-04)
DX: F11.23 Opioid dependence with withdrawal (principal); F13.20 Sedative, hypnotic or anxiolytic dependence, uncomplicated; Z68.1 Body mass index [BMI] 19.9 or less, adult; F10.230 Alcohol dependence with withdrawal, uncomplicated; F12.20 Cannabis dependence, uncomplicated; F17.210 Nicotine dependence, cigarettes, uncomplicated; F19.24 Other psychoactive substance dependence with psychoactive substance-induced mood disorder; I10 Essential (primary) hypertension; J43.1 Panlobular emphysema; R79.89 Other specified abnormal findings of blood chemistry; R63.6 Underweight; Z86.011 Personal history of benign neoplasm of the brain
CPT/HCPCS: 36415; 80053; 85027; 86780; 87811; C9803-CS; U0003; U0005

== ENCOUNTER 2022-11-20 10:12 | Inpatient (IN) | payer OTHER ==
[2022-11-20 10:50] VITALS: BMI 17.1
[2022-11-20] MEDS ORDERED: BENZONATATE 200 MG CAPSULE PO PRN (11:12)
[2022-11-20] MEDS ORDERED: hydrOXYzine PAMOATE 25 MG CAPSULE (FP) PO PRN (11:12)
[2022-11-20] MEDS ORDERED: IBUPROFEN 400 MG TABLET (FP) PO PRN (11:12)
[2022-11-20] MEDS ORDERED: methaDONE HCL 10 MG TABLET (FOR DETOX USE ONLY) PO ONE (11:12)
[2022-11-20] MEDS ORDERED: POLYETHYLENE GLYCOL (HEALTHYLAX) 3350 17 GM PACKET PO PRN (11:12)
[2022-11-20] MEDS ORDERED: MAG HYDROX/AL HYDROX/SIMETH 30 ML UNIT-DOSE CUP PO PRN (11:12)
[2022-11-20] MEDS ORDERED: cloNIDine HCL 0.1 MG TABLET PO PRN (11:12)
[2022-11-20] MEDS ORDERED: BENZOCAINE/MENTHOL (CHLORASEPTIC ) LOZENGE MM PRN (11:12)
[2022-11-20] MEDS ORDERED: DICYCLOMINE HCL 10 MG CAPSULE PO PRN (11:12)
[2022-11-20] MEDS ORDERED: BISMUTH SUBSALICYLATE 262 MG/15 ML BTL PO PRN (11:12)
[2022-11-20] MEDS ORDERED: COLLOIDAL OATMEAL 1 BAR EACH TP PRN (11:12)
[2022-11-20] MEDS ORDERED: MAGNESIUM HYDROX 2400MG/30ML ORAL SUSPENSION 30 ML CUP PO PRN (11:12)
[2022-11-20] MEDS ORDERED: guaiFENesin 600 MG TABLET.ER (FP) PO PRN (11:12)
[2022-11-20] MEDS ORDERED: NICOTINE 10 MG CARTRIDGE (INHALER) IH PRN (11:12)
[2022-11-20] MEDS ORDERED: AMMONIUM LACTATE 12% LOTION 225 GM BOTTLE TP PRN (11:12)
[2022-11-20] MEDS ORDERED: LORazepam 1 MG TABLET PO PRN (11:12)
[2022-11-20] MEDS ORDERED: NICOTINE POLACRILEX 2 MG GUM BUC PRN (11:12)
[2022-11-20] MEDS ORDERED: ACETAMINOPHEN 325 MG TABLET (FP) PO PRN (11:12)
[2022-11-20] MEDS ORDERED: NALOXONE HCL 0.4 MG/ML VIAL IM PRN (11:12)
[2022-11-20] MEDS ORDERED: IBUPROFEN 600 MG TABLET (FP) PO PRN (11:12)
[2022-11-20] MEDS ORDERED: ONDANSETRON *ODT* 4 MG TABLET SL PRN (11:12)
[2022-11-20] MEDS ORDERED: NALOXONE HCL (KLOXXADO) 8 MG SPRAY NS PRN (11:12)
[2022-11-20] MEDS ORDERED: LOPERAMIDE HCL 2 MG CAPSULE PO PRN (11:12)
[2022-11-20] MEDS ORDERED: methaDONE HCL 10 MG TABLET (FOR DETOX USE ONLY) ONE (11:24)
[2022-11-20] MEDS ORDERED: LORazepam 2 MG TABLET ONE (11:25)
[2022-11-20] MEDS: LORazepam 2 MG TABLET PO SCH ×3 (11:40→22:41)
[2022-11-20] MEDS: amLODIPine BESYLATE 5 MG TABLET (FP) PO SCH (12:16)
[2022-11-20] MEDS: FLUTICASONE/UMECLIDIN/VILANTER(200-62.5-25 TRELEGY ELLIPTA) INAHLER IH SCH (12:16)
[2022-11-20] MEDS: THIAMINE HCL 100 MG TABLET (FP) PO SCH (22:44)
[2022-11-20] MEDS: MELATONIN 5 MG TABLETS PO SCH (23:25)
[2022-11-21] MEDS: LORazepam 2 MG TABLET PO SCH ×4 (05:19→22:39)
[2022-11-21] MEDS: LACTULOSE 20 GM/30 ML UDC (FOR ORAL USE ONLY) PO SCH ×4 (10:07→22:39)
[2022-11-21] MEDS: PRENATAL VITAMINS W/ FOLIC ACID TABLET (FP) PO SCH (10:11)
[2022-11-21] MEDS: amLODIPine BESYLATE 5 MG TABLET (FP) PO SCH (10:11)
[2022-11-21] MEDS ORDERED: ALBUTEROL SO4 0.083% IH SOL 2.5 MG/3 ML VIAL.NEB. NEB PRN (11:12)
[2022-11-21] MEDS: FLUTICASONE/UMECLIDIN/VILANTER(200-62.5-25 TRELEGY ELLIPTA) INAHLER IH SCH (11:16)
[2022-11-21] MEDS: ALBUTEROL SO4 HFA INHALER IH PRN ×2 (11:18→17:36)
[2022-11-21 12:29] LABS: POTASSIUM 4.2 mmol/L (3.5-5.1)
[2022-11-21 12:31] LABS: CALCIUM 9.6 mg/dL (8.5-10.1)
[2022-11-21 12:32] LABS: BLOOD UREA NITROGEN 18.8 mg/dL (7-18); HEMATOCRIT 38.3 % (35.4-49); HEMOGLOBIN 13.3 GM/dL (11.7-16.9); MCH 32.4 pg (25.7-33.7); MCHC 34.7 g/dl (32.0-35.9); MEAN CELL VOLUME 93.2 fl (80-96); MEAN PLT VOLUME 9.1 fl (7.5-11.1); PLATELET COUNT 210 10^3/uL (134-434); RDW 16.8 % (11.9-15.9)
[2022-11-21 12:39] LABS: ALBUMIN 3.4 g/dl (3.4-5.0)
[2022-11-21 12:44] LABS: BILIRUBIN,TOTAL 0.4 mg/dL (0.2-1); TOT PROT 8.4 g/dl (6.4-8.2)
[2022-11-21] MEDS: MELATONIN 5 MG TABLETS PO SCH (22:39)
[2022-11-21] MEDS: THIAMINE HCL 100 MG TABLET (FP) PO SCH (22:39)
[2022-11-22] MEDS: LORazepam 1 MG TABLET PO SCH ×4 (05:59→22:54)
[2022-11-22] MEDS: amLODIPine BESYLATE 5 MG TABLET (FP) PO SCH (09:26)
[2022-11-22] MEDS ORDERED: methaDONE HCL 10 MG TABLET (FOR DETOX USE ONLY) PO ONE (10:00)
[2022-11-22] MEDS: PRENATAL VITAMINS W/ FOLIC ACID TABLET (FP) PO SCH (10:04)
[2022-11-22] MEDS: LACTULOSE 20 GM/30 ML UDC (FOR ORAL USE ONLY) PO SCH ×4 (10:04→22:54)
[2022-11-22] MEDS: FLUTICASONE/UMECLIDIN/VILANTER(200-62.5-25 TRELEGY ELLIPTA) INAHLER IH SCH (10:06)
[2022-11-22] MEDS: THIAMINE HCL 100 MG TABLET (FP) PO SCH (22:53)
[2022-11-22] MEDS: MELATONIN 5 MG TABLETS PO SCH (22:54)
[2022-11-22] MEDS: ALBUTEROL SO4 HFA INHALER IH PRN (22:57)
[2022-11-23] MEDS ORDERED: LORazepam 0.5 MG TABLET PO PRN
[2022-11-23] MEDS: LORazepam 0.5 MG TABLET PO SCH ×4 (05:42→22:43)
[2022-11-23] MEDS: PRENATAL VITAMINS W/ FOLIC ACID TABLET (FP) PO SCH (10:11)
[2022-11-23] MEDS: amLODIPine BESYLATE 5 MG TABLET (FP) PO SCH (10:11)
[2022-11-23] MEDS: ALBUTEROL SO4 HFA INHALER IH PRN (10:12)
[2022-11-23] MEDS: FLUTICASONE/UMECLIDIN/VILANTER(200-62.5-25 TRELEGY ELLIPTA) INAHLER IH SCH (10:12)
[2022-11-23] MEDS: LACTULOSE 20 GM/30 ML UDC (FOR ORAL USE ONLY) PO SCH ×4 (10:14→22:43)
[2022-11-23 20:59] VITALS: RESP 18; TEMP 97.8
[2022-11-23] MEDS: THIAMINE HCL 100 MG TABLET (FP) PO SCH (22:43)
[2022-11-23] MEDS: MELATONIN 5 MG TABLETS PO SCH (22:44)
[2022-11-24] MEDS ORDERED: LORazepam 0.5 MG TABLET PO ONE (05:00)
[2022-11-24 09:21] VITALS: BP 107/68; PULSE 75
[2022-11-24] MEDS ORDERED: FLUTICASONE/UMECLIDIN/VILANTER(100-62.5-25 TRELEGY ELLIPTA) INAHLER IH SCH (10:00)
[2022-11-24] MEDS ORDERED: methaDONE HCL 10 MG TABLET (FOR DETOX USE ONLY) PO ONE (10:00)
[2022-11-24] MEDS ORDERED: FAMOTIDINE 20 MG TABLET PO SCH (10:00)
[2022-11-24] MEDS: FLUTICASONE/UMECLIDIN/VILANTER(200-62.5-25 TRELEGY ELLIPTA) INAHLER IH SCH (10:19)
[2022-11-24] MEDS: amLODIPine BESYLATE 5 MG TABLET (FP) PO SCH (10:19)
[2022-11-24] MEDS: PRENATAL VITAMINS W/ FOLIC ACID TABLET (FP) PO SCH (10:19)
[2022-11-24] MEDS: LACTULOSE 20 GM/30 ML UDC (FOR ORAL USE ONLY) PO SCH (10:19)
== END 2022-11-24 10:00 | disposition home or self-care (01) | DRG 897 ==
LOC: YASAS 10:12 → Y6N 11:40
PROVIDERS: ADMIT Allergy & Immunology; ATTEND Surgery
PROC: HZ2ZZZZ Detoxification Services for Substance Abuse Treatment (ICD-10-PCS; principal; 2022-11-20)
DX: F11.23 Opioid dependence with withdrawal (principal); F14.20 Cocaine dependence, uncomplicated; F19.282 Other psychoactive substance dependence with psychoactive substance-induced sleep disorder; F10.230 Alcohol dependence with withdrawal, uncomplicated; F17.210 Nicotine dependence, cigarettes, uncomplicated; F41.9 Anxiety disorder, unspecified; F32.A Depression, unspecified; I10 Essential (primary) hypertension; J44.9 Chronic obstructive pulmonary disease, unspecified; J30.2 Other seasonal allergic rhinitis; R79.89 Other specified abnormal findings of blood chemistry; Z86.11 Personal history of tuberculosis
CPT/HCPCS: 36415; 80053; 82140; 85027; 86780; 87635; 87811; C9803-CS; U0003; U0005

== ENCOUNTER 2023-02-17 09:43 | Inpatient (IN) | payer OTHER ==
[2023-02-17 10:03] VITALS: BMI 17.5
[2023-02-17] MEDS ORDERED: guaiFENesin 600 MG TABLET.ER (FP) PO PRN (11:11)
[2023-02-17] MEDS ORDERED: IBUPROFEN 400 MG TABLET (FP) PO PRN (11:11)
[2023-02-17] MEDS ORDERED: methaDONE HCL 10 MG TABLET (FOR DETOX USE ONLY) PO ONE (11:11)
[2023-02-17] MEDS ORDERED: ONDANSETRON *ODT* 4 MG TABLET SL PRN (11:11)
[2023-02-17] MEDS ORDERED: ACETAMINOPHEN 325 MG TABLET (FP) PO PRN (11:11)
[2023-02-17] MEDS ORDERED: LOPERAMIDE HCL 2 MG CAPSULE PO PRN (11:11)
[2023-02-17] MEDS ORDERED: cloNIDine HCL 0.1 MG TABLET PO PRN (11:11)
[2023-02-17] MEDS ORDERED: hydrOXYzine PAMOATE 25 MG CAPSULE (FP) PO PRN (11:11)
[2023-02-17] MEDS ORDERED: BENZOCAINE/MENTHOL (CHLORASEPTIC ) LOZENGE MM PRN (11:11)
[2023-02-17] MEDS ORDERED: NALOXONE HCL 0.4 MG/ML VIAL IM PRN (11:11)
[2023-02-17] MEDS ORDERED: DICYCLOMINE HCL 10 MG CAPSULE PO PRN (11:11)
[2023-02-17] MEDS ORDERED: BISMUTH SUBSALICYLATE 524 MG/30 ML PO PRN (11:11)
[2023-02-17] MEDS ORDERED: MAGNESIUM HYDROX 2400MG/30ML ORAL SUSPENSION 30 ML CUP PO PRN (11:11)
[2023-02-17] MEDS ORDERED: chlordiazePOXIDE HCL 25 MG CAPSULE PO PRN (11:11)
[2023-02-17] MEDS ORDERED: METHOCARBAMOL 500 MG TABLET PO PRN (11:11)
[2023-02-17] MEDS ORDERED: MAG HYDROX/AL HYDROX/SIMETH 30 ML UNIT-DOSE CUP PO PRN (11:11)
[2023-02-17] MEDS ORDERED: BENZONATATE 200 MG CAPSULE PO PRN (11:11)
[2023-02-17] MEDS ORDERED: NALOXONE HCL (KLOXXADO) 8 MG SPRAY NS PRN (11:11)
[2023-02-17] MEDS ORDERED: POLYETHYLENE GLYCOL (HEALTHYLAX) 3350 17 GM PACKET PO PRN (11:11)
[2023-02-17] MEDS ORDERED: IBUPROFEN 600 MG TABLET (FP) PO PRN (11:11)
[2023-02-17] MEDS ORDERED: OXYMETAZOLINE 0.05% NASAL SOLUTION 15 ML BOTTLE NS PRN (11:21)
[2023-02-17] MEDS: chlordiazePOXIDE HCL 25 MG CAPSULE PO SCH ×3 (11:44→22:16)
[2023-02-17] MEDS: MELATONIN 5 MG TABLETS PO SCH (22:16)
[2023-02-17] MEDS: THIAMINE HCL 100 MG TABLET (FP) PO SCH (22:16)
[2023-02-18] MEDS: chlordiazePOXIDE HCL 25 MG CAPSULE PO SCH ×4 (06:00→22:16)
[2023-02-18] MEDS: FLUTICASONE/UMECLIDIN/VILANTER(100-62.5-25 TRELEGY ELLIPTA) INAHLER IH PRN (06:17)
[2023-02-18] MEDS: ALBUTEROL SO4 HFA INHALER IH PRN ×3 (06:18→22:16)
[2023-02-18 09:47] LABS: HEMATOCRIT 38.5 % (35.4-49); HEMOGLOBIN 13.1 GM/dL (11.7-16.9); MCH 33.2 pg (25.7-33.7); MCHC 34.2 g/dl (32.0-35.9); MEAN CELL VOLUME 97.1 fl (80-96); MEAN PLT VOLUME 8.4 fl (7.5-11.1); PLATELET COUNT 198 10^3/uL (134-434); RBC 3.96 M/mm3 (4.00-5.60); WHITE BLOOD COUNT 4.7 K/mm3 (4.0-10.0)
[2023-02-18 09:59] LABS: ALBUMIN 3.3 g/dl (3.4-5.0); CALCIUM 9.4 mg/dL (8.5-10.1)
[2023-02-18 10:00] LABS: BLOOD UREA NITROGEN 13.8 mg/dL (7-18)
[2023-02-18 10:04] LABS: BILIRUBIN,TOTAL 0.8 mg/dL (0.2-1); CREATININE 0.9 mg/dL (0.55-1.3); TOT PROT 8.1 g/dl (6.4-8.2)
[2023-02-18] MEDS: PRENATAL VITAMINS W/ FOLIC ACID TABLET (FP) PO SCH (10:34)
[2023-02-18] MEDS: amLODIPine BESYLATE 10 MG TABLET (FP) PO SCH (10:34)
[2023-02-18 18:22] LABS: URINE APPEARANCE CLEAR; URINE BILIRUBIN NEGATIVE (NEGATIVE); URINE COLOR YELLOW; URINE GLUCOSE (UA) NEGATIVE (NEGATIVE); URINE KETONE TRACE (NEGATIVE)
[2023-02-18 18:23] LABS: PH,URINE 6.5 (5.0-8.0); URINE LEUK ESTERASE NEGATIVE (NEGATIVE); URINE NITRITE NEGATIVE (NEGATIVE); URINE PROTEIN NEGATIVE (NEGATIVE)
[2023-02-18] MEDS: THIAMINE HCL 100 MG TABLET (FP) PO SCH (22:16)
[2023-02-18] MEDS: MELATONIN 5 MG TABLETS PO SCH (22:16)
[2023-02-19] MEDS: chlordiazePOXIDE HCL 25 MG CAPSULE PO SCH ×4 (05:53→22:15)
[2023-02-19] MEDS ORDERED: methaDONE HCL 10 MG TABLET (FOR DETOX USE ONLY) PO ONE (10:00)
[2023-02-19] MEDS: PRENATAL VITAMINS W/ FOLIC ACID TABLET (FP) PO SCH (10:19)
[2023-02-19] MEDS: amLODIPine BESYLATE 10 MG TABLET (FP) PO SCH (10:20)
[2023-02-19] MEDS: FLUTICASONE/UMECLIDIN/VILANTER(100-62.5-25 TRELEGY ELLIPTA) INAHLER IH PRN (10:25)
[2023-02-19] MEDS: MELATONIN 5 MG TABLETS PO SCH (22:14)
[2023-02-19] MEDS: THIAMINE HCL 100 MG TABLET (FP) PO SCH (22:15)
[2023-02-20] MEDS ORDERED: chlordiazePOXIDE HCL 10 MG CAPSULE PO PRN
[2023-02-20] MEDS: chlordiazePOXIDE HCL 10 MG CAPSULE PO SCH ×4 (05:42→22:19)
[2023-02-20] MEDS: FLUTICASONE/UMECLIDIN/VILANTER(100-62.5-25 TRELEGY ELLIPTA) INAHLER IH PRN ×2 (05:44→10:09)
[2023-02-20] MEDS: ALBUTEROL SO4 HFA INHALER IH PRN ×4 (06:37→22:18)
[2023-02-20] MEDS: PRENATAL VITAMINS W/ FOLIC ACID TABLET (FP) PO SCH (10:10)
[2023-02-20] MEDS: amLODIPine BESYLATE 10 MG TABLET (FP) PO SCH (10:10)
[2023-02-20] MEDS: THIAMINE HCL 100 MG TABLET (FP) PO SCH (22:18)
[2023-02-20] MEDS: MELATONIN 5 MG TABLETS PO SCH (22:18)
[2023-02-21] MEDS: chlordiazePOXIDE HCL 10 MG CAPSULE PO SCH ×2 (05:28→18:10)
[2023-02-21] MEDS: FLUTICASONE/UMECLIDIN/VILANTER(100-62.5-25 TRELEGY ELLIPTA) INAHLER IH PRN (05:29)
[2023-02-21] MEDS ORDERED: methaDONE HCL 10 MG TABLET (FOR DETOX USE ONLY) PO ONE (10:00)
[2023-02-21] MEDS: amLODIPine BESYLATE 10 MG TABLET (FP) PO SCH (10:22)
[2023-02-21] MEDS: PRENATAL VITAMINS W/ FOLIC ACID TABLET (FP) PO SCH (10:22)
[2023-02-21 22:00] VITALS: BP 118/67
[2023-02-21] MEDS: MELATONIN 5 MG TABLETS PO SCH (22:25)
[2023-02-21] MEDS: THIAMINE HCL 100 MG TABLET (FP) PO SCH (22:26)
[2023-02-21] MEDS: ALBUTEROL SO4 HFA INHALER IH PRN (22:26)
[2023-02-22] MEDS ORDERED: chlordiazePOXIDE HCL 10 MG CAPSULE PO ONE (05:00)
[2023-02-22 05:55] VITALS: PULSE 75; RESP 16; TEMP 98
[2023-02-22] MEDS: FLUTICASONE/UMECLIDIN/VILANTER(100-62.5-25 TRELEGY ELLIPTA) INAHLER IH PRN (06:13)
[2023-02-22] MEDS: amLODIPine BESYLATE 10 MG TABLET (FP) PO SCH (09:27)
[2023-02-22] MEDS: PRENATAL VITAMINS W/ FOLIC ACID TABLET (FP) PO SCH (09:28)
== END 2023-02-22 09:47 | disposition home or self-care (01) | DRG 897 ==
LOC: YASAS 09:43 → Y3N 12:02
PROVIDERS: ADMIT Allergy & Immunology; ATTEND Surgery
PROC: HZ2ZZZZ Detoxification Services for Substance Abuse Treatment (ICD-10-PCS; principal; 2023-02-17)
DX: F11.23 Opioid dependence with withdrawal (principal); Z68.1 Body mass index [BMI] 19.9 or less, adult; F10.230 Alcohol dependence with withdrawal, uncomplicated; F17.210 Nicotine dependence, cigarettes, uncomplicated; I10 Essential (primary) hypertension; J43.0 Unilateral pulmonary emphysema [MacLeod's syndrome]; R63.6 Underweight
CPT/HCPCS: 36415; 80053; 81003; 82140; 85027; 86780; 87635; 87811

== ENCOUNTER 2023-08-29 10:15 | Inpatient (IN) | payer OTHER ==
[2023-08-29 10:51] VITALS: BMI 17.4
[2023-08-29] MEDS ORDERED: MAG HYDROX/AL HYDROX/SIMETH 30 ML UNIT-DOSE CUP PO PRN (13:06)
[2023-08-29] MEDS ORDERED: guaiFENesin 600 MG TABLET.ER (FP) PO PRN (13:06)
[2023-08-29] MEDS ORDERED: NALOXONE HCL 0.4 MG/ML VIAL IM PRN (13:06)
[2023-08-29] MEDS ORDERED: METHOCARBAMOL 500 MG TABLET PO PRN (13:06)
[2023-08-29] MEDS ORDERED: BENZOCAINE/MENTHOL (CHLORASEPTIC ) LOZENGE MM PRN (13:06)
[2023-08-29] MEDS ORDERED: chlordiazePOXIDE HCL 25 MG CAPSULE PO PRN (13:06)
[2023-08-29] MEDS ORDERED: IBUPROFEN 600 MG TABLET (FP) PO PRN (13:06)
[2023-08-29] MEDS ORDERED: IBUPROFEN 400 MG TABLET (FP) PO PRN (13:06)
[2023-08-29] MEDS ORDERED: MAGNESIUM HYDROX 2400MG/30ML ORAL SUSPENSION 30 ML CUP PO PRN (13:06)
[2023-08-29] MEDS ORDERED: BENZONATATE 200 MG CAPSULE PO PRN (13:06)
[2023-08-29] MEDS ORDERED: POLYETHYLENE GLYCOL (HEALTHYLAX) 3350 17 GM PACKET PO PRN (13:06)
[2023-08-29] MEDS ORDERED: DICYCLOMINE HCL 10 MG CAPSULE PO PRN (13:06)
[2023-08-29] MEDS ORDERED: BISMUTH SUBSALICYLATE 262 MG/15 ML BTL PO PRN (13:06)
[2023-08-29] MEDS ORDERED: ONDANSETRON *ODT* 4 MG TABLET SL PRN (13:06)
[2023-08-29] MEDS ORDERED: NALOXONE HCL (KLOXXADO) 8 MG SPRAY NS PRN (13:06)
[2023-08-29] MEDS ORDERED: amLODIPine BESYLATE 10 MG TABLET (FP) PO SCH (13:15)
[2023-08-29] MEDS ORDERED: methaDONE HCL 10 MG TABLET (FOR DETOX USE ONLY) ONE (14:22)
[2023-08-29] MEDS: methaDONE HCL 10 MG TABLET (FOR DETOX USE ONLY) PO ONE (14:27)
[2023-08-29] MEDS: chlordiazePOXIDE HCL 25 MG CAPSULE PO ONE (14:28)
[2023-08-29] MEDS: chlordiazePOXIDE HCL 25 MG CAPSULE PO SCH (17:08)
[2023-08-29] MEDS: cloNIDine HCL 0.1 MG TABLET PO PRN (17:08)
[2023-08-29] MEDS: ALBUTEROL SO4 HFA INHALER IH PRN (17:11)
[2023-08-29] MEDS: hydrOXYzine PAMOATE 25 MG CAPSULE (FP) PO PRN (22:09)
[2023-08-29] MEDS: THIAMINE HCL 100 MG TABLET (FP) PO SCH (22:10)
[2023-08-29] MEDS: MELATONIN 5 MG TABLETS PO SCH (22:10)
[2023-08-29] MEDS: prednisoLONE ACETATE 1% OPHTH SUSP 5 ML BOTTLE OD SCH (22:55)
[2023-08-30] MEDS: FLUTICASONE/UMECLIDIN/VILANTER(100-62.5-25 TRELEGY ELLIPTA) INAHLER IH PRN (05:08)
[2023-08-30] MEDS: amLODIPine BESYLATE 10 MG TABLET (FP) PO SCH (10:39)
[2023-08-30] MEDS: PRENATAL VITAMINS W/ FOLIC ACID TABLET (FP) PO SCH (10:39)
[2023-08-30 11:48] LABS: HEMATOCRIT 38.2 % (35.4-49); HEMOGLOBIN 12.9 GM/dL (11.7-16.9); MCH 34.1 pg (25.7-33.7); MCHC 33.7 g/dl (32.0-35.9); MEAN CELL VOLUME 101.2 fl (80-96); PLATELET COUNT 152 10^3/uL (134-434); RBC 3.77 M/mm3 (4.00-5.60); RDW 14.9 % (11.9-15.9); WHITE BLOOD COUNT 4.4 K/mm3 (4.0-10.0)
[2023-08-30 11:49] LABS: CHLORIDE 99 mmol/L (98-107); POTASSIUM 3.7 mmol/L (3.5-5.1); SODIUM 137 mmol/L (136-145)
[2023-08-30 11:52] LABS: BLOOD UREA NITROGEN 21.1 mg/dL (7-18); CALCIUM 9.3 mg/dL (8.5-10.1)
[2023-08-30 11:53] LABS: ALBUMIN 3.1 g/dl (3.4-5.0); ANION GAP 6 mmol/L (4-13); CO2 33 mmol/L (21-32); GLUCOSE,RANDOM 120 mg/dL (74-106)
[2023-08-30 11:55] LABS: SGPT/ALT 39 U/L (13-61)
[2023-08-30 11:56] LABS: CREATININE 1.3 mg/dL (0.55-1.3); SGOT/AST 51 U/L (15-37)
[2023-08-30 11:57] LABS: BILIRUBIN,TOTAL 0.9 mg/dL (0.2-1); TOT PROT 7.8 g/dl (6.4-8.2)
[2023-08-30 11:58] LABS: ALK PHOS 90 U/L (45-117)
[2023-08-31] MEDS: chlordiazePOXIDE HCL 25 MG CAPSULE PO SCH (05:27)
[2023-08-31] MEDS: methaDONE HCL 10 MG TABLET (FOR DETOX USE ONLY) PO ONE (10:19)
[2023-09-01] MEDS ORDERED: chlordiazePOXIDE HCL 10 MG CAPSULE PO PRN
[2023-09-01] MEDS: chlordiazePOXIDE HCL 10 MG CAPSULE PO SCH (05:15)
[2023-09-02] MEDS: chlordiazePOXIDE HCL 10 MG CAPSULE PO SCH (05:33)
[2023-09-02] MEDS: ACETAMINOPHEN 325 MG TABLET (FP) PO PRN (05:35)
[2023-09-02] MEDS: methaDONE HCL 10 MG TABLET (FOR DETOX USE ONLY) PO ONE (09:46)
[2023-09-03] MEDS: chlordiazePOXIDE HCL 10 MG CAPSULE PO ONE (06:00)
[2023-09-03 09:20] VITALS: BP 123/77; PULSE 107; RESP 16; TEMP 98.1
[2023-09-03] MEDS: LOPERAMIDE HCL 2 MG CAPSULE PO PRN (11:24)
== END 2023-09-03 11:30 | disposition home or self-care (01) | DRG 897 ==
LOC: YASAS 10:15 → Y6N 13:18
PROVIDERS: ADMIT Allergy & Immunology; ATTEND Surgery
PROC: HZ2ZZZZ Detoxification Services for Substance Abuse Treatment (ICD-10-PCS; principal; 2023-08-29)
DX: F11.23 Opioid dependence with withdrawal (principal); F10.230 Alcohol dependence with withdrawal, uncomplicated; F17.210 Nicotine dependence, cigarettes, uncomplicated; I10 Essential (primary) hypertension; J44.9 Chronic obstructive pulmonary disease, unspecified; D33.2 Benign neoplasm of brain, unspecified; Z86.11 Personal history of tuberculosis
CPT/HCPCS: 36415; 80053; 80305; 80307; 82140; 83036; 85027; 86480; 86780; 87635; 87811; 93005; 93010

== ENCOUNTER 2023-10-05 09:59 | Inpatient (IN) | payer OTHER ==
[2023-10-05 10:56] VITALS: BMI 18.4
[2023-10-05] MEDS ORDERED: BENZONATATE 200 MG CAPSULE PO PRN (11:37)
[2023-10-05] MEDS ORDERED: guaiFENesin 600 MG TABLET.ER (FP) PO PRN (11:37)
[2023-10-05] MEDS ORDERED: NALOXONE HCL (KLOXXADO) 8 MG SPRAY NS PRN (11:37)
[2023-10-05] MEDS ORDERED: NICOTINE POLACRILEX 2 MG GUM BUC PRN (11:37)
[2023-10-05] MEDS ORDERED: POLYETHYLENE GLYCOL (HEALTHYLAX) 3350 17 GM PACKET PO PRN (11:37)
[2023-10-05] MEDS ORDERED: LOPERAMIDE HCL 2 MG CAPSULE PO PRN (11:37)
[2023-10-05] MEDS ORDERED: IBUPROFEN 400 MG TABLET (FP) PO PRN (11:37)
[2023-10-05] MEDS ORDERED: MAGNESIUM HYDROX 2400MG/30ML ORAL SUSPENSION 30 ML CUP PO PRN (11:37)
[2023-10-05] MEDS ORDERED: BENZOCAINE/MENTHOL (CHLORASEPTIC ) LOZENGE MM PRN (11:37)
[2023-10-05] MEDS ORDERED: MAG HYDROX/AL HYDROX/SIMETH 30 ML UNIT-DOSE CUP PO PRN (11:37)
[2023-10-05] MEDS ORDERED: BISMUTH SUBSALICYLATE 524 MG/30 ML PO PRN (11:37)
[2023-10-05] MEDS ORDERED: NALOXONE HCL 0.4 MG/ML VIAL IM PRN (11:37)
[2023-10-05] MEDS ORDERED: ONDANSETRON *ODT* 4 MG TABLET SL PRN (11:37)
[2023-10-05] MEDS: IBUPROFEN 600 MG TABLET (FP) PO PRN (16:30)
[2023-10-05] MEDS: LORazepam 1 MG TABLET PO PRN (20:17)
[2023-10-05] MEDS: ACETAMINOPHEN 325 MG TABLET (FP) PO PRN (20:18)
[2023-10-05] MEDS: MELATONIN 5 MG TABLETS PO SCH (22:34)
[2023-10-05] MEDS: THIAMINE HCL 100 MG TABLET (FP) PO SCH (22:34)
[2023-10-05] MEDS: LORazepam 1 MG TABLET PO SCH (22:36)
[2023-10-06] MEDS: FLUTICASONE/UMECLIDIN/VILANTER(100-62.5-25 TRELEGY ELLIPTA) INAHLER IH PRN (06:36)
[2023-10-06] MEDS: amLODIPine BESYLATE 10 MG TABLET (FP) PO SCH (10:34)
[2023-10-06] MEDS: PRENATAL VITAMINS W/ FOLIC ACID TABLET (FP) PO SCH (10:34)
[2023-10-06 14:09] LABS: HEMATOCRIT 35.2 % (35.4-49); HEMOGLOBIN 12.3 GM/dL (11.7-16.9); MCHC 34.9 g/dl (32.0-35.9); MEAN CELL VOLUME 100.3 fl (80-96); MEAN PLT VOLUME 8.2 fl (7.5-11.1); PLATELET COUNT 197 10^3/uL (134-434); RBC 3.51 M/mm3 (4.00-5.60); WHITE BLOOD COUNT 3.8 K/mm3 (4.0-10.0)
[2023-10-06 14:48] LABS: CALCIUM 8.6 mg/dL (8.5-10.1)
[2023-10-06 14:49] LABS: BLOOD UREA NITROGEN 14.8 mg/dL (7-18)
[2023-10-06 14:52] LABS: CREATININE 1.1 mg/dL (0.55-1.3)
[2023-10-06 14:54] LABS: BILIRUBIN,TOTAL 0.5 mg/dL (0.2-1); TOT PROT 6.6 g/dl (6.4-8.2)
[2023-10-06] MEDS: MELATONIN 5 MG TABLETS PO SCH (22:38)
[2023-10-07] MEDS: LORazepam 1 MG TABLET PO SCH (06:02)
[2023-10-07] MEDS: POTASSIUM CHLORIDE ORAL LIQUID 20 MEQ/15 ML PO ONE ×2 (10:12→14:30)
[2023-10-07] MEDS: ALBUTEROL SO4 HFA INHALER IH PRN (15:14)
[2023-10-08] MEDS ORDERED: LORazepam 0.5 MG TABLET PO PRN
[2023-10-08] MEDS: LORazepam 0.5 MG TABLET PO SCH (05:08)
[2023-10-08 11:37] VITALS: BP 120/70; PULSE 92; RESP 18; TEMP 97.1
[2023-10-09] MEDS ORDERED: LORazepam 0.5 MG TABLET PO ONE (05:00)
== END 2023-10-08 10:25 | disposition home or self-care (01) | DRG 897 ==
LOC: YASAS 09:59 → UNDOADMIN 11:33 → Y6N 11:33 → UNDODISIN 10-08 10:25
PROVIDERS: ADMIT Allergy & Immunology; ATTEND Surgery
PROC: HZ2ZZZZ Detoxification Services for Substance Abuse Treatment (ICD-10-PCS; principal; 2023-10-04)
DX: F10.20 Alcohol dependence, uncomplicated (principal); Z68.1 Body mass index [BMI] 19.9 or less, adult; F10.282 Alcohol dependence with alcohol-induced sleep disorder; F17.210 Nicotine dependence, cigarettes, uncomplicated; D33.2 Benign neoplasm of brain, unspecified; E87.6 Hypokalemia; I10 Essential (primary) hypertension; J43.0 Unilateral pulmonary emphysema [MacLeod's syndrome]; R63.6 Underweight; Z86.11 Personal history of tuberculosis; Z99.89 Dependence on other enabling machines and devices
CPT/HCPCS: 36415; 71046-TC-FY; 80053; 80307; 84132; 85027; 86780; 93005; 93010

== ENCOUNTER 2024-01-23 11:30 | Inpatient (IN) | payer OTHER ==
[2024-01-23] MEDS ORDERED: diazePAM 5 MG TABLET PO PRN (12:19)
[2024-01-23 12:23] VITALS: BMI 15.5
[2024-01-23] MEDS ORDERED: guaiFENesin 600 MG TABLET.ER (FP) PO PRN (12:23)
[2024-01-23] MEDS ORDERED: P-EPHED 60MG/TRIPROLIDI 2.5MG TABLET PO PRN (12:23)
[2024-01-23] MEDS ORDERED: BENZONATATE 200 MG CAPSULE PO PRN (12:23)
[2024-01-23] MEDS ORDERED: ONDANSETRON *ODT* 4 MG TABLET SL PRN (12:23)
[2024-01-23] MEDS ORDERED: BENZOCAINE/MENTHOL (CHLORASEPTIC ) LOZENGE MM PRN (12:23)
[2024-01-23] MEDS ORDERED: NICOTINE POLACRILEX 2 MG LOZENGE BC PRN (12:23)
[2024-01-23] MEDS ORDERED: BISMUTH SUBSALICYLATE 524 MG/30 ML PO PRN (12:23)
[2024-01-23] MEDS ORDERED: ACETAMINOPHEN 325 MG TABLET (FP) PO PRN (12:23)
[2024-01-23] MEDS ORDERED: IBUPROFEN 400 MG TABLET (FP) PO PRN (12:23)
[2024-01-23] MEDS ORDERED: NALOXONE HCL 0.4 MG/ML VIAL IM PRN (12:23)
[2024-01-23] MEDS ORDERED: POLYETHYLENE GLYCOL (HEALTHYLAX) 3350 17 GM PACKET PO PRN (12:23)
[2024-01-23] MEDS ORDERED: NICOTINE POLACRILEX 2 MG GUM BUC PRN (12:23)
[2024-01-23] MEDS ORDERED: MAGNESIUM HYDROX 2400MG/30ML ORAL SUSPENSION 30 ML CUP PO PRN (12:23)
[2024-01-23] MEDS ORDERED: MAG HYDROX/AL HYDROX/SIMETH 30 ML UNIT-DOSE CUP PO PRN (12:23)
[2024-01-23] MEDS ORDERED: LOPERAMIDE HCL 2 MG CAPSULE PO PRN (12:23)
[2024-01-23] MEDS ORDERED: NALOXONE (NARCAN) HCL 4 MG/0.1 ML SPRAY NS PRN (12:23)
[2024-01-23] MEDS: methaDONE HCL 10 MG TABLET (FOR DETOX USE ONLY) PO ONE (13:15)
[2024-01-23] MEDS ORDERED: methaDONE HCL 10 MG TABLET (FOR DETOX USE ONLY) ONE (13:18)
[2024-01-23] MEDS: amLODIPine BESYLATE 10 MG TABLET (FP) PO SCH (13:49)
[2024-01-23] MEDS ORDERED: amLODIPine BESYLATE 5 MG TABLET (FP) ONE (13:53)
[2024-01-23] MEDS: predniSONE 20 MG TABLET (UD) PO SCH (14:05)
[2024-01-23] MEDS: FLUTICASONE/UMECLIDIN/VILANTER(100-62.5-25 TRELEGY ELLIPTA) INAHLER IH SCH ×2 (14:05)
[2024-01-23] MEDS: cloNIDine HCL 0.1 MG TABLET PO PRN (14:09)
[2024-01-23] MEDS: diazePAM 5 MG TABLET PO SCH (17:10)
[2024-01-23] MEDS: ALBUTEROL SO4 HFA INHALER IH PRN (17:30)
[2024-01-23] MEDS: MELATONIN 5 MG TABLETS PO SCH (22:27)
[2024-01-23] MEDS: THIAMINE 100 MG TABLET PO SCH (22:27)
[2024-01-24] MEDS: PRENATAL VITAMINS W/ FOLIC ACID TABLET (FP) PO SCH (10:28)
[2024-01-24] MEDS: methaDONE HCL 10 MG TABLET (FOR DETOX USE ONLY) PO ONE (10:29)
[2024-01-24 11:55] LABS: HEMATOCRIT 38.6 % (35.4-49); HEMOGLOBIN 13.2 GM/dL (11.7-16.9); MCH 33.8 pg (25.7-33.7); MCHC 34.2 g/dl (32.0-35.9); MEAN CELL VOLUME 98.6 fl (80-96); MEAN PLT VOLUME 8.5 fl (7.5-11.1); PLATELET COUNT 233 10^3/uL (134-434); RBC 3.92 M/mm3 (4.00-5.60); WHITE BLOOD COUNT 7.2 K/mm3 (4.0-10.0)
[2024-01-24 12:02] LABS: POTASSIUM 3.4 mmol/L (3.5-5.1)
[2024-01-24 12:11] LABS: CALCIUM 9.8 mg/dL (8.5-10.1)
[2024-01-24 12:12] LABS: ALBUMIN 3.4 g/dl (3.4-5.0); BLOOD UREA NITROGEN 12.6 mg/dL (7-18)
[2024-01-24 12:15] LABS: CREATININE 0.8 mg/dL (0.55-1.3)
[2024-01-24 12:16] LABS: BILIRUBIN,TOTAL 0.6 mg/dL (0.2-1)
[2024-01-24 12:33] LABS: TOT PROT 6.5 g/dl (6.4-8.2)
[2024-01-24] MEDS: POTASSIUM CHLORIDE ORAL LIQUID 20 MEQ/15 ML PO SCH (15:01)
[2024-01-24] MEDS: IBUPROFEN 600 MG TABLET (FP) PO PRN (17:04)
[2024-01-25] MEDS: diazePAM 5 MG TABLET PO SCH (05:57)
[2024-01-25] MEDS: methaDONE HCL 10 MG TABLET (FOR DETOX USE ONLY) PO ONE (09:54)
[2024-01-26] MEDS: diazePAM 5 MG TABLET PO SCH (05:54)
[2024-01-26 09:12] VITALS: BP 125/90; PULSE 110; RESP 18; TEMP 98.2
[2024-01-26] MEDS: methaDONE HCL 10 MG TABLET (FOR DETOX USE ONLY) PO ONE (09:27)
[2024-01-27] MEDS ORDERED: diazePAM 5 MG TABLET PO ONE (06:00)
== END 2024-01-26 10:32 | disposition home or self-care (01) | DRG 897 ==
LOC: YASAS 11:30 → Y6N 12:55
PROVIDERS: ADMIT Allergy & Immunology; ATTEND Surgery
PROC: HZ2ZZZZ Detoxification Services for Substance Abuse Treatment (ICD-10-PCS; principal; 2024-01-23)
DX: F11.23 Opioid dependence with withdrawal (principal); F10.230 Alcohol dependence with withdrawal, uncomplicated; F12.20 Cannabis dependence, uncomplicated; F17.210 Nicotine dependence, cigarettes, uncomplicated; J43.0 Unilateral pulmonary emphysema [MacLeod's syndrome]
CPT/HCPCS: 36415; 80053; 80305; 80307; 85027; 86780

== ENCOUNTER 2024-09-25 12:14 | Inpatient (IN) | payer OTHER ==
[2024-09-25] MEDS ORDERED: BENZONATATE 200 MG CAPSULE PO PRN (12:55)
[2024-09-25] MEDS ORDERED: guaiFENesin 600 MG TABLET.ER (FP) PO PRN (12:55)
[2024-09-25] MEDS ORDERED: MAGNESIUM HYDROX 2400MG/30ML ORAL SUSPENSION 30 ML CUP PO PRN (12:55)
[2024-09-25] MEDS ORDERED: hydrOXYzine PAMOATE 25 MG CAPSULE (FP) PO PRN (12:55)
[2024-09-25] MEDS ORDERED: POLYETHYLENE GLYCOL (HEALTHYLAX) 3350 17 GM PACKET PO PRN (12:55)
[2024-09-25] MEDS ORDERED: ONDANSETRON *ODT* 4 MG TABLET SL PRN (12:55)
[2024-09-25] MEDS ORDERED: ACETAMINOPHEN 325 MG TABLET (FP) PO PRN (12:55)
[2024-09-25] MEDS ORDERED: NALOXONE (NARCAN) HCL 4 MG/0.1 ML SPRAY NS PRN (12:55)
[2024-09-25] MEDS ORDERED: BISMUTH SUBSALICYLATE 524 MG/30 ML PO PRN (12:55)
[2024-09-25] MEDS ORDERED: DICYCLOMINE HCL 10 MG CAPSULE PO PRN (12:55)
[2024-09-25] MEDS ORDERED: BENZOCAINE/MENTHOL (CHLORASEPTIC ) LOZENGE MM PRN (12:55)
[2024-09-25] MEDS ORDERED: LOPERAMIDE HCL 2 MG CAPSULE PO PRN (12:55)
[2024-09-25] MEDS ORDERED: IBUPROFEN 600 MG TABLET (FP) PO PRN (12:55)
[2024-09-25] MEDS ORDERED: MAG HYDROX/AL HYDROX/SIMETH 30 ML UNIT-DOSE CUP PO PRN (12:55)
[2024-09-25] MEDS ORDERED: METHOCARBAMOL 500 MG TABLET PO PRN (12:55)
[2024-09-25] MEDS ORDERED: IBUPROFEN 400 MG TABLET (FP) PO PRN (12:55)
[2024-09-25 12:57] VITALS: BMI 16.2
[2024-09-25] MEDS ORDERED: cloNIDine HCL 0.1 MG TABLET ONE (14:48)
[2024-09-25] MEDS ORDERED: PRENATAL VITAMINS W/ FOLIC ACID TABLET (FP) PO ONE (14:49)
[2024-09-25] MEDS: PRENATAL VITAMINS W/ FOLIC ACID TABLET (FP) PO SCH (14:51)
[2024-09-25] MEDS: cloNIDine HCL 0.1 MG TABLET PO SCH (14:51)
[2024-09-25] MEDS: NICOTINE 7 MG/24 HOURS TOPICAL PATCH TD SCH (14:52)
[2024-09-25] MEDS: FLUTICASONE/UMECLIDIN/VILANTER(100-62.5-25 TRELEGY ELLIPTA) INAHLER IH SCH (15:54)
[2024-09-25] MEDS: methaDONE HCL 10 MG TABLET PO ONE (16:01)
[2024-09-25] MEDS: diazePAM 5 MG TABLET PO SCH (17:25)
[2024-09-25] MEDS: MELATONIN 5 MG TABLETS PO SCH (22:36)
[2024-09-25] MEDS: THIAMINE 100 MG TABLET PO SCH (22:52)
[2024-09-26] MEDS: ALBUTEROL SO4 HFA INHALER IH PRN (10:10)
[2024-09-26] MEDS: methaDONE HCL 40 MG DISPERSABLE TABLET PO ONE (10:12)
[2024-09-26] MEDS: amLODIPine BESYLATE 10 MG TABLET (FP) PO SCH (10:12)
[2024-09-26] MEDS: predniSONE 20 MG TABLET (UD) PO SCH (10:17)
[2024-09-26] MEDS: methaDONE HCL 10 MG TABLET (FOR DETOX USE ONLY) PO ONE (10:52)
[2024-09-26 11:49] LABS: HEMATOCRIT 40.9 % (40.1-51.0); HEMOGLOBIN 14.1 g/dL (13.7-17.5); MCHC 34.5 g/dl (32.3-36.5); MEAN CELL VOLUME 105.7 fl (79.0-92.2); MEAN PLT VOLUME 10.5 fl (9.4-12.4); PLATELET COUNT 292 x10^3/uL (163-337); RDW 14.8 % (12.2-16.4)
[2024-09-26 12:05] LABS: CALCIUM 9.8 mg/dL (8.5-10.1)
[2024-09-26 12:06] LABS: ALBUMIN 3.9 g/dl (3.4-5.0); BLOOD UREA NITROGEN 11.3 mg/dL (7-18)
[2024-09-26 12:08] LABS: CREATININE 1.1 mg/dL (0.55-1.3)
[2024-09-26 12:11] LABS: BILIRUBIN,TOTAL 0.7 mg/dL (0.2-1); TOT PROT 7.7 g/dl (6.4-8.2)
[2024-09-26] MEDS: POTASSIUM CHLORIDE ORAL LIQUID 20 MEQ/15 ML PO ONE (14:54)
[2024-09-26] MEDS: POTASSIUM CHLORIDE ORAL LIQUID 20 MEQ/15 ML PO SCH (17:41)
[2024-09-27] MEDS ORDERED: cloNIDine HCL 0.1 MG TABLET PO PRN
[2024-09-27] MEDS: diazePAM 5 MG TABLET PO SCH (05:52)
[2024-09-27] MEDS: FLUTICASONE/UMECLIDIN/VILANTER(100-62.5-25 TRELEGY ELLIPTA) INAHLER IH SCH (07:43)
[2024-09-27] MEDS: methaDONE HCL 10 MG TABLET (FOR DETOX USE ONLY) PO ONE (09:24)
[2024-09-27] MEDS: amLODIPine BESYLATE 10 MG TABLET (FP) PO SCH (09:24)
[2024-09-27] MEDS: diazePAM 5 MG TABLET PO PRN (17:17)
[2024-09-28] MEDS: diazePAM 5 MG TABLET PO SCH (05:17)
[2024-09-28] MEDS: methaDONE HCL 10 MG TABLET (FOR DETOX USE ONLY) PO ONE (09:26)
[2024-09-28] MEDS ORDERED: methaDONE HCL 10 MG TABLET PO ONE (10:00)
[2024-09-28] MEDS: ACAMPROSATE CALCIUM 333 MG TABLET.DR PO SCH (14:02)
[2024-09-29] MEDS: diazePAM 5 MG TABLET PO ONE (06:09)
[2024-09-29 06:57] VITALS: BP 143/90; PULSE 70; RESP 16; TEMP 98.2
[2024-09-29] MEDS: methaDONE HCL 10 MG TABLET (FOR DETOX USE ONLY) PO ONE (09:45)
[2024-09-30] MEDS ORDERED: methaDONE HCL 10 MG TABLET PO ONE (10:00)
== END 2024-09-29 08:56 | disposition home or self-care (01) | DRG 897 ==
LOC: YASAS 12:14 → Y6N 13:32
PROVIDERS: ADMIT Allergy & Immunology; ATTEND Allergy & Immunology
PROC: HZ2ZZZZ Detoxification Services for Substance Abuse Treatment (ICD-10-PCS; principal; 2024-09-25)
DX: F11.23 Opioid dependence with withdrawal (principal); Z68.1 Body mass index [BMI] 19.9 or less, adult; F10.230 Alcohol dependence with withdrawal, uncomplicated; F12.10 Cannabis abuse, uncomplicated; F17.210 Nicotine dependence, cigarettes, uncomplicated; D33.2 Benign neoplasm of brain, unspecified; I10 Essential (primary) hypertension; J43.0 Unilateral pulmonary emphysema [MacLeod's syndrome]; R63.6 Underweight; Z99.89 Dependence on other enabling machines and devices
CPT/HCPCS: 36415; 80053; 80305; 80307; 84132; 85027; 86780; 93005; 93010